=== PATIENT | male | born 1935 | race Caucasian/White ===

== ENCOUNTER 2020-04-23 15:36 | Inpatient (IN) ==
--- NOTE | 2020-04-23 15:50 | Emergency Department Note ---
History of Present Illness General Chief complaint: Stroke/CVA Symptoms Stated complaint: STROKE SX, FALL Time Seen by Provider: 04/23/20 15:39 Source: patient and EMS Mode of arrival: EMS History of Present Illness Provider complaint: Right-sided weakness Onset (ago): hour(s) Location: upper extremity, lower extremity and right Pain Consistency: + constant Quality: + other (Weakness) Relieved By: + none Associated symptoms: no chest pain, no cough, no fever/chills, no headaches, no nausea/vomiting, no shortness of breath and no syncope This is an 85-year-old male with a history of hypertension presenting with right-sided weakness starting at approximately 9:30 AM this morning. The patient stated that he woke up at around 6 AM and did not have any symptoms. At about 9:30 AM he was having a cup of coffee and he could not lift the coffee with his right arm. Later in the day he noticed that while trying to get up out of the chair he fell to the ground because his right leg was weak. He did hit the left side of his head. He denies headache. He does not think he injured his neck. He does feel like he has some stiffness there. He denies any other injuries from the fall. He has had no prior history of stroke. He denies any numbness. He has had no fever, cough cold symptoms, chest pain, shortness of breath, abdominal pain or vomiting. He is not on any blood thinners other than aspirin. Home Medications Home Medications Medication Instructions Recorded Confirmed Type aspirin [Aspirin Low Dose] 81 mg PO DAILY 04/23/20 04/23/20 History cholecalciferol (vitamin D3) 10 mcg PO DAILY 04/23/20 04/23/20 History food supplemt, lactose-reduced 1 ea PO BID 04/23/20 04/23/20 History [Ensure] hydrophilic cream 1 applic TOPICAL DAILY 04/23/20 04/23/20 History latanoprost 1 drp OPB HS 04/23/20 04/23/20 History levothyroxine 50 mcg PO DAILY 04/23/20 04/23/20 History lidocaine HCl [Aspercreme 1 applic TOPICAL DIRECTED PRN 04/23/20 04/23/20 History (lidocaine HCl)] lisinopril-hydrochlorothiazide 1 tab PO DAILY 04/23/20 04/23/20 History meclizine 25 mg PO TID PRN 04/23/20 04/23/20 History naproxen sodium 220 mg PO BID PRN 04/23/20 04/23/20 History omega-3 fatty acids-vitamin E 1 cap PO DAILY 04/23/20 04/23/20 History [Fish Oil] simvastatin 10 mg PO HS 04/23/20 04/23/20 History tamsulosin 0.4 mg PO DAILY 04/23/20 04/23/20 History vit C,K-Gl-acqki-lutein-zeaxan 1 tab PO BID 04/23/20 04/23/20 History [PreserVision AREDS-2] Allergies Allergy/AdvReac Type Severity Reaction Status Date / Time No Known Allergies Allergy Verified 04/23/20 19:07 Past Med/Surg History Medical History (Updated 04/23/20 @ 19:09 by Omer Michaels MD) Hypertension Hypothyroidism Social History (Updated 04/23/20 @ 15:50 by Myron Duke MD) Smoking Status: Never smoker Visual Impairment: Partially Limited Feels Safe at Home: Yes Review of Systems See HPI for pertinent positives & negatives. and A total of 10 systems reviewed and were otherwise negative Physical Exam Vital Signs Vital Signs - 24 hr 04/23/20 15:40 04/23/20 15:41 04/23/20 15:47 Temperature 36.9 C Temperature Source Oral Pulse Rate 71 67 67 Pulse Rate [Apical] Pulse Rate from SpO2 Sensor 73 71 Respiratory Rate 18 Blood Pressure 158/79 H 158/79 H Blood Pressure [Left Arm] Blood Pressure Mean 105 85 Blood Pressure Mean [Left Arm] Pulse Oximetry 96 98 98 Oxygen Delivery Method Room Air Sepsis Recent Fever Within 48 Hours No Sepsis New/Unexplained Change in Mental Status No Sepsis Action Taken by Nursing No Action Required 04/23/20 15:50 04/23/20 16:00 04/23/20 16:02 Temperature Temperature Source Pulse Rate 81 81 73 Pulse Rate [Apical] Pulse Rate from SpO2 Sensor 83 77 81 Respiratory Rate 24 18 Blood Pressure 122/93 Blood Pressure [Left Arm] Blood Pressure Mean 99 Blood Pressure Mean [Left Arm] Pulse Oximetry 98 96 Oxygen Delivery Method Sepsis Recent Fever Within 48 Hours Sepsis New/Unexplained Change in Mental Status Sepsis Action Taken by Nursing 04/23/20 16:10 04/23/20 16:20 04/23/20 16:42 Temperature Temperature Source Pulse Rate 83 78 76 Pulse Rate [Apical] Pulse Rate from SpO2 Sensor 83 76 83 Respiratory Rate 20 24 21 Blood Pressure 138/100 Blood Pressure [Left Arm] Blood Pressure Mean 115 Blood Pressure Mean [Left Arm] Pulse Oximetry 99 99 97 Oxygen Delivery Method Sepsis Recent Fever Within 48 Hours Sepsis New/Unexplained Change in Mental Status Sepsis Action Taken by Nursing 04/23/20 16:50 04/23/20 17:00 04/23/20 17:01 Temperature Temperature Source Pulse Rate 84 80 92 H Pulse Rate [Apical] Pulse Rate from SpO2 Sensor 92 H 81 76 Respiratory Rate 21 Blood Pressure 140/99 Blood Pressure [Left Arm] Blood Pressure Mean 108 Blood Pressure Mean [Left Arm] Pulse Oximetry 95 97 96 Oxygen Delivery Method Sepsis Recent Fever Within 48 Hours Sepsis New/Unexplained Change in Mental Status Sepsis Action Taken by Nursing 04/23/20 17:10 04/23/20 17:20 04/23/20 17:30 Temperature Temperature Source Pulse Rate 90 69 80 Pulse Rate [Apical] Pulse Rate from SpO2 Sensor Respiratory Rate 18 Blood Pressure 139/97 Blood Pressure [Left Arm] Blood Pressure Mean 103 Blood Pressure Mean [Left Arm] Pulse Oximetry Oxygen Delivery Method Sepsis Recent Fever Within 48 Hours Sepsis New/Unexplained Change in Mental Status Sepsis Action Taken by Nursing 04/23/20 17:31 04/23/20 17:40 04/23/20 17:50 Temperature Temperature Source Pulse Rate 79 79 97 H Pulse Rate [Apical] Pulse Rate from SpO2 Sensor Respiratory Rate 20 13 Blood Pressure Blood Pressure [Left Arm] Blood Pressure Mean Blood Pressure Mean [Left Arm] Pulse Oximetry Oxygen Delivery Method Sepsis Recent Fever Within 48 Hours Sepsis New/Unexplained Change in Mental Status Sepsis Action Taken by Nursing 04/23/20 18:00 04/23/20 18:01 04/23/20 18:10 Temperature Temperature Source Pulse Rate 73 72 74 Pulse Rate [Apical] Pulse Rate from SpO2 Sensor Respiratory Rate 23 Blood Pressure 164/104 H Blood Pressure [Left Arm] Blood Pressure Mean 110 Blood Pressure Mean [Left Arm] Pulse Oximetry Oxygen Delivery Method Sepsis Recent Fever Within 48 Hours Sepsis New/Unexplained Change in Mental Status Sepsis Action Taken by Nursing 04/23/20 18:20 04/23/20 18:30 04/23/20 18:40 Temperature Temperature Source Pulse Rate 81 74 69 Pulse Rate [Apical] Pulse Rate from SpO2 Sensor Respiratory Rate 23 Blood Pressure 167/82 H Blood Pressure [Left Arm] Blood Pressure Mean 87 Blood Pressure Mean [Left Arm] Pulse Oximetry Oxygen Delivery Method Sepsis Recent Fever Within 48 Hours Sepsis New/Unexplained Change in Mental Status Sepsis Action Taken by Nursing 04/23/20 18:50 04/23/20 19:00 04/23/20 19:10 Temperature Temperature Source Pulse Rate 114 H 83 84 Pulse Rate [Apical] Pulse Rate from SpO2 Sensor Respiratory Rate 19 20 21 Blood Pressure Blood Pressure [Left Arm] Blood Pressure Mean Blood Pressure Mean [Left Arm] Pulse Oximetry Oxygen Delivery Method Sepsis Recent Fever Within 48 Hours Sepsis New/Unexplained Change in Mental Status Sepsis Action Taken by Nursing 04/23/20 19:20 04/23/20 19:28 Temperature Temperature Source Pulse Rate 74 Pulse Rate [Apical] 76 Pulse Rate from SpO2 Sensor Respiratory Rate 21 22 Blood Pressure Blood Pressure [Left Arm] 142/90 H Blood Pressure Mean Blood Pressure Mean [Left Arm] 107 Pulse Oximetry 97 Oxygen Delivery Method Room Air Sepsis Recent Fever Within 48 Hours Sepsis New/Unexplained Change in Mental Status Sepsis Action Taken by Nursing Constitutional: Vital signs reviewed. Eyes: Pupils are equal round reactive to light. Conjunctiva are noninjected. ENT: Pharynx is clear without erythema or exudate. Mucous membranes are moist. Neck supple without meningeal signs. No midline tenderness to the cervical spine. Respiratory: Clear to auscultation bilaterally. Breath sounds are equal bilaterally. Cardiovascular: Regular rate and rhythm. No rubs or gallops. GI: Soft, nondistended and nontender. Bowel sounds are present. Musculoskeletal: No peripheral edema. No lower extremity tenderness. Integumentary: No cyanosis. or jaundice. Neurologic: The patient is awake and alert. Cranial nerves II-XII are intact. Motor is 5 out of 5 in the left upper and lower extremity. Strength is 3 out of 5 in the right lower and upper extremity. Sensation is intact to light touch all extremities. Normal speech. Left pronator drift and limb ataxia. Psychiatric: Normal affect. Not anxious appearing. Course Administered Medications Discontinued Medications Clopidogrel Bisulfate (Clopidogrel Bisulfate 300 Mg Tab) 300 mg PO NOW STA Stop: 04/23/20 19:01 Last Admin: 04/23/20 19:25 Dose: 300 mg Documented by: [id number] Ioversol (Optiray 320 125ml) 119 ml IV ONCE ONE Stop: 04/23/20 16:41 Last Admin: 04/23/20 16:40 Dose: 119 ml Documented by: [id number] Medical Decision Making Differential Diagnosis CVA, TIA, intracranial hemorrhage, intracranial mass, concussion, encephalopathy Medical Records Attestation: I reviewed the patient's medical records. I did perform a limited focused review of portions of the patient's old chart on the electronic medical record. The patient has had no prior visits to this hospital. Home Medications Current Medication List: was personally reviewed by me Laboratory Data Attestation: I reviewed the patient's lab results. Result diagrams: 04/23/20 15:30 04/23/20 15:30 Lab Results 04/23/20 04/23/20 04/23/20 Range/Units 15:30 15:30 15:30 WBC 7.03 (4.8-10.8) K/uL RBC 4.74 (4.7-6.1) M/uL Hgb 14.8 (14.0-18.0) g/dL Hct 43.6 (42-52) % MCV 92.0 (80-100) fL MCH 31.2 (25-34) pg MCHC 33.9 (32-36) g/dL RDW Std Deviation 49.1 H (36.4-46.3) fL RDW Coeff of Chon 14.5 (11.5-14.5) % Plt Count 211 (130-400) K/uL MPV 11.1 H (7.4-10.4) fL Immature Gran % (Auto) 0.1 % Neut % (Auto) 70.1 % Lymph % (Auto) 17.9 % Barrow % (Auto) 11.2 % Eos % (Auto) 0.7 % Baso % (Auto) 0.0 % Neut # (Auto) 4.92 (1.4-6.5) K/uL Lymph # (Auto) 1.26 (1.2-3.4) K/uL Barrow # (Auto) 0.79 H (0.11-0.59) K/uL Eos # (Auto) 0.05 (0-0.5) K/uL Baso # (Auto) 0.00 (0-0.2) K/uL Immature Gran # (Auto) 0.01 (0.00-0.02) K/uL PT 11.4 (9.0-12.0) Seconds INR 1.1 (0.9-1.1) APTT 30.5 (21.0-31.0) Seconds PTT Ratio 1.1 Sodium 139 (136-145) mmol/L Potassium 3.8 (3.5-5.1) mmol/L Chloride 106 (98-107) mmol/L Carbon Dioxide 27 (21-32) mmol/L Anion Gap 6.0 (3-11) BUN 19 H (7-18) mg/dl Creatinine 1.18 (0.6-1.4) mg/dl Est Cr Clr Drug Dosing 53.3 ml/min Est GFR ( Amer) 64.4 Est GFR (Non-Af Amer) 55.5 BUN/Creatinine Ratio 16.2 (10-20) Glucose 85 (70-99) mg/dl Calcium 9.1 (8.5-10.1) mg/dl Magnesium 2.1 (1.8-2.4) mg/dl Total Bilirubin 0.5 (0.2-1) mg/dl AST 27 (15-37) U/L ALT 27 (12-78) U/L Alkaline Phosphatase 93 (45-117) U/L Troponin I < 0.015 (0-0.045) ng/ml Total Protein 8.4 H (6.4-8.2) gm/dl Albumin 3.1 L (3.4-5.0) gm/dl Globulin 5.3 H (2.5-4.0) gm/dl Albumin/Globulin Ratio 0.6 L (0.9-2) Imaging Data Radiologist's Impression: CERVICAL SPINE CT CT DOSE: 1838.98 mGy.cm HISTORY: Fall. Neck pain. TECHNIQUE: Multiaxial CT images of the cervical spine were performed and reformatted in the sagittal and coronal plane without the use of contrast. A dose lowering technique was utilized adhering to the principles of ALARA. COMPARISON: None. FINDINGS: Straightening of the cervical spine. Mild degenerative disc disease at C4-C5, C5-C6, and C6-C7. Prevertebral soft tissues and the C1-C2 interval are intact. No pneumothorax. Focal super endplate indentation at T2. This favors a Schmorl's node. No paravertebral soft tissue edema to suggest an acute fracture. This could also represent an old compression deformity. No acute fracture or subluxation within the cervical spine. IMPRESSION: 1. No fractures within the cervical spine. 2. Focal superior endplate indentation at T2. This favors a Schmorl's node. An old endplate compression deformity could also have a similar appearance. ACT 112: Negative or not required by law. Electronically signed by: Jason Schultz M.D. 04/23/2020 4:51 PM XR chest 1V portable HISTORY: Stroke symptoms. Shortness of breath. COMPARISON: None. FINDINGS: The lungs are clear. Cardiac silhouette is normal in size. No pleural effusions. No pneumothorax. IMPRESSION: No acute process. ACT 112: Negative or not required by law. Electronically signed by: Jason Schultz M.D. 04/23/2020 4:17 PM NECK CTA HISTORY: Right-sided weakness. Stroke evaluation. TECHNIQUE: Multiaxial CT images of the neck were performed following the intravenous administration of contrast to evaluate the major cervical vessels. Maximum intensity projection images were also obtained. All measurements were calculated based on NASCET criteria. A dose lowering technique was utilized adhering to the principles of ALARA. COMPARISON STUDY: None. FINDINGS: The aortic arch and proximal great vessels are widely patent. Moderate calcified plaque within the bilateral carotid bifurcations without significant stenosis. Tortuous proximal bilateral internal carotid arteries. Mild fusiform aneurysmal dilatation of the distal left internal carotid artery measuring 7 mm in diameter. There is a large fusiform aneurysm seen within the distal right internal carotid artery measuring 11 mm in diameter and 1.8 cm in length. Mild narrowing at the origin of the bilateral vertebral arteries due to the calcified plaque. Remaining bilateral vertebral arteries are widely patent. IMPRESSION: 1. No significant stenosis, occlusion, or dissection within the bilateral carotid arteries. 2. Mild focal narrowing at the origin of the bilateral vertebral arteries. 3. 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 ACT 112: Negative or not required by law. Electronically signed by: Jason Schultz M.D. 04/23/2020 4:59 PM CTA ANGIOGRAPHY OF THE HEAD CLINICAL HISTORY: Stroke evaluation. Fall. Right-sided weakness. Right-sided facial droop. COMPARISON STUDY: No previous studies for comparison. TECHNIQUE: Helical axial images of the head were obtained following uneventful intravenous administration of 119 cc of Optiray 320. Sagittal and coronal recons tructions were viewed as well as maximal intensity projections on an independent 3-D workstation. Automated exposure control was utilized for the study. A dose lowering technique was utilized adhering to the principles of ALARA. FINDINGS: No acute intracranial hemorrhage, midline shift or mass effect is present. Ventricular system is unremarkable for age. Basilar cisterns are patent. White matter hypodensity suggests small vessel disease. There is extensive atherosclerotic plaque within the intracranial vessels. Note is made of aneurysmal dilatation of the distal cervical portion of the right internal carotid artery, better depicted on the CTA of the neck. This measures 1.1 x 1 cm in the AP by transverse dimension respectively and measures 1.8 cm in length. There is mild fusiform dilatation of the basilar artery, measuring 8 mm. No saccular intracranial aneurysm is present. The bilateral M1, M2, A1 and A2 segments are patent. There is no intraluminal thrombus. There is no central vessel occlusion. Venous gas is incidentally noted. This is related to IV. IMPRESSION: 1. No central vessel occlusion. 2. 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 Please see that report for further description. 3. 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 4. Extensive atherosclerotic plaque within the intracranial vessels. No significant stenosis. ACT 112: Negative or not required by law. Electronically signed by: Chidi Millan M.D. 04/23/2020 4:[address] OF THE HEAD WITHOUT CONTRAST CLINICAL HISTORY: right weakness COMPARISON STUDY: No previous studies for comparison. TECHNIQUE: Helical axial images of the head were obtained without IV contrast. Automated exposure control was utilized for the study. A dose lowering technique was utilized adhering to the principles of ALARA. FINDINGS: No acute intracranial hemorrhage, midline shift or mass effect is present. Ventricular system is unremarkable. The basilar cisterns are patent. There are no extra axial collections. White matter hypodensity suggests small vessel disease. There are no findings to suggest acute dural sinus thrombosis or acute territorial infarct. Extensive vascular calcification of the intracranial vessels is noted. Minimal ethmoid sinus mucosal thickening is noted. There are no significant calvarial abnormalities. Cavernous sinus gas is likely related to IV. IMPRESSION: No acute intracranial findings. ACT 112: Negative or not required by law. Electronically signed by: Chidi Millan M.D. 04/23/2020 4:42 PM ECG Data Attestation: I personally reviewed and interpreted this ECG as follows: Indication: + other (Stroke) Rate (beats per minute): 85 Rhythm: + normal sinus ECG Intervals/blocks: + Mobitz Type II, + Left anterior fascicular block and + Right Bundle branch block ECG ST segments: no ST elevation Comparison ECG Date: no prior available Blood Pressure Blood Pressure Findings: Elevated blood pressure Blood Pressure Disposition: further management by hospitalist Head Trauma GCS Score: 15 MDM Narrative I did provide prehospital medical command for the patient. I did evaluate the patient as noted above. He is presenting with symptoms concerning for stroke. He is not a IV TPA candidate as he first noticed his symptoms at 9:30 AM this morning. IV access was established. I did place an order for continuous cardiac monitoring. The monitor showed sinus rhythm at a rate of 86 bpm with some dropped beats. I did order and personally review the patient's 12-lead EKG as described above. He appears to have a right bundle branch block as well as a left anterior fascicular block and a Mobitz type II second-degree block. I did order and personally reviewed the images of the patient's chest x-ray as described above. I did order and review the patient's blood work as noted in the electronic medical record. He has no leukocytosis or anemia. Electrolytes are unremarkable. Troponin is negative. I did order a CT of the head and cervical spine and CT angiogram of the head and neck. I did review the images myself as well as the radiology report as described above. There is no evidence of acute intracranial hemorrhage or CVA. Cervical spine demonstrates no fractures or dislocation. Angiogram of the head and neck demonstrates aneurysmal dilatation of both internal carotid arteries. No dissection or stenosis is noted. I did discuss the test results with the patient. I did reassess the patient. He continues to have weakness on the right side of his body. He will be hospitalized for further evaluation and MRI of the brain. I did discuss case with the hospitalist and correctional counselor/case manager. I spoke to the patient's son over the telephone per his request. Impression & Plan Acute cerebrovascular accident, Right sided weakness, Acute head injury, Aneurysm of left internal carotid artery, Aneurysm of right internal carotid artery, Mobitz type 2 second degree heart block Discharge Plan Visit Data Chief Complaint: Stroke/CVA Symptoms Stated Complaint: STROKE SX, FALL ED Provider: Myron Duke Discharge Problem: Acute cerebrovascular accident, Right sided weakness, Acute head injury, Aneurysm of left internal carotid artery, Aneurysm of right internal carotid artery, Mobitz type 2 second degree heart block Discharge Instructions Interventions: ED Discharge Assessment Last Done: 04/23/20 19:37 Forms Stand Alone Forms: My [facility] [employer] Prescriptions Prescriptions: No Action latanoprost 0.005 % Drops 1 drp OPB HS RF: 0 aspirin [Aspirin Low Dose] 81 mg Tablet,Delayed Release (Dr/Ec) 81 mg PO DAILY RF: 0 tamsulosin 0.4 mg Capsule 0.4 mg PO DAILY RF: 0 levothyroxine 50 mcg Tablet 50 mcg PO DAILY RF: 0 simvastatin 20 mg Tablet 10 mg PO HS RF: 0 naproxen sodium 220 mg Tablet 220 mg PO BID PRN (Reason: Pain) RF: 0 lisinopril-hydrochlorothiazide 20-25 mg Tablet 1 tab PO DAILY RF: 0 cholecalciferol (vitamin D3) 10 mcg (400 unit) Tablet 10 mcg PO DAILY RF: 0 meclizine 25 mg Tablet,Chewable 25 mg PO TID PRN (Reason: Dizziness) RF: 0 Ensure Liquid 1 ea PO BID RF: 0 Fish Oil 1,000 mg Capsule 1 cap PO DAILY RF: 0 hydrophilic cream Cream 1 applic TOPICAL DAILY RF: 0 PreserVision AREDS-2 [id number]-[id number]-mg Capsule 1 tab PO BID RF: 0 lidocaine HCl [Aspercreme (lidocaine HCl)] 4 % Cream 1 applic TOPICAL DIRECTED PRN (Reason: Pain) RF: 0 Referrals Referrals: Pedro Luis Solares [Primary Care Provider] -
[2020-04-23 15:56] LABS: Eosinophils # (auto) 0.05 K/uL (0-0.5); Eosinophils % (auto) 0.7 %; Hematocrit (blood only) 43.6 % (42-52); Hemoglobin 14.8 g/dL (14.0-18.0); Immature Granulocytes # (auto) 0.01 K/uL (0.00-0.02); Immature Granulocytes % (auto) 0.1 %; Lymphocytes # (auto) 1.26 K/uL (1.2-3.4); Lymphocytes % (auto) 17.9 %; Mean Corpuscular Hemoglobin 31.2 pg (25-34); Mean Corpuscular Hgb Conc 33.9 g/dL (32-36); Mean Platelet Volume 11.1 fL (7.4-10.4); Monocytes # (auto) 0.79 K/uL (0.11-0.59); Monocytes % (auto) 11.2 %; Neutrophils # (auto) 4.92 K/uL (1.4-6.5); Neutrophils % (auto) 70.1 %; Platelet Count 211 K/uL (130-400); RDW Coefficient of Variation 14.5 % (11.5-14.5); RDW Standard Deviation 49.1 fL (36.4-46.3); Red Blood Count 4.74 M/uL (4.7-6.1); White Blood Count 7.03 K/uL (4.8-10.8)
[2020-04-23 16:11] LABS: INR 1.1 (0.9-1.1); Partial Thromboplastin Ratio 1.1; Partial Thromboplastin Time 30.5 Seconds (21.0-31.0); Prothrombin Time 11.4 Seconds (9.0-12.0)
--- NOTE | 2020-04-23 16:19 | XRay Report ---
XR chest 1V portable HISTORY: Stroke symptoms. Shortness of breath. COMPARISON: None. FINDINGS: The lungs are clear. Cardiac silhouette is normal in size. No pleural effusions. No pneumot horax. IMPRESSION: No acute process. ACT 112: Negative or not required by law. Electronically signed by: Jason Schultz M.D. 04/23/2020 4:17 PM
[2020-04-23 16:22] LABS: Albumin Level 3.1 gm/dl (3.4-5.0); BUN Creatinine Ratio 16.2 (10-20); Blood Urea Nitrogen 19 mg/dl (7-18); Calcium 9.1 mg/dl (8.5-10.1); Carbon Dioxide 27 mmol/L (21-32); Chloride 106 mmol/L (98-107); Creatinine Clr Calc Pharmacy 53.3 ml/min; Est GFR (African American) 64.4; Est GFR (Non-African American) 55.5; Glucose 85 mg/dl (70-99); Magnesium 2.1 mg/dl (1.8-2.4); Potassium 3.8 mmol/L (3.5-5.1); Sodium 139 mmol/L (136-145)
[2020-04-23 16:28] LABS: Alanine Aminotransferase 27 U/L (12-78); Albumin Globulin Ratio 0.6 (0.9-2); Alkaline Phosphatase 93 U/L (45-117); Aspartate Aminotransferase 27 U/L (15-37); Bilirubin,Total 0.5 mg/dl (0.2-1); Globulin 5.3 gm/dl (2.5-4.0); Total Protein 8.4 gm/dl (6.4-8.2); Troponin I < 0.015 ng/ml (0-0.045)
[2020-04-23] MEDS ORDERED: OPTIRAY 320 125ml IV ONE (16:40)
--- NOTE | 2020-04-23 16:44 | CT Scan Report ---
CT OF THE HEAD WITHOUT CONTRAST CLINICAL HISTORY: right weakness COMPARISON STUDY: No previous studies for comparison. TECHNIQUE: Helical axial images of the head were obtained without IV contrast. Automated exposure con trol was utilized for the study. A dose lowering technique was utilized adhering to the principles o f ALARA. FINDINGS: No acute intracranial hemorrhage, midline shift or mass effect is present. Ventricular syst em is unremarkable. The basilar cisterns are patent. There are no extra axial collections. White jad er hypodensity suggests small vessel disease. There are no findings to suggest acute dural sinus thro mbosis or acute territorial infarct. Extensive vascular calcification of the intracranial vessels is noted. Minimal ethmoid sinus mucosal thickening is noted. There are no significant calvarial abnormal ities. Cavernous sinus gas is likely related to IV. IMPRESSION: No acute intracranial findings. ACT 112: Negative or not required by law. Electronically signed by: Chidi Millan M.D. 04/23/2020 4:42 PM
--- NOTE | 2020-04-23 16:53 | CT Scan Report ---
CERVICAL SPINE CT CT DOSE: 1838.98 mGy.cm HISTORY: Fall. Neck pain. TECHNIQUE: Multiaxial CT images of the cervical spine were performed and reformatted in the sagittal and coronal plane without the use of contrast. A dose lowering technique was utilized adhering to th e principles of ALARA. COMPARISON: None. FINDINGS: Straightening of the cervical spine. Mild degenerative disc disease at C4-C5, C5-C6, and C6 -C7. Prevertebral soft tissues and the C1-C2 interval are intact. No pneumothorax. Focal super endpla te indentation at T2. This favors a Schmorl's node. No paravertebral soft tissue edema to suggest an acute fracture. This could also represent an old compression deformity. No acute fracture or subluxat ion within the cervical spine. IMPRESSION: 1. No fractures within the cervical spine. 2. Focal superior endplate indentation at T2. This favors a Schmorl's node. An old endplate compressi on deformity could also have a similar appearance. ACT 112: Negative or not required by law. Electronically signed by: Jason Schultz M.D. 04/23/2020 4:51 PM
--- NOTE | 2020-04-23 16:59 | CT Scan Report ---
CTA ANGIOGRAPHY OF THE HEAD CLINICAL HISTORY: Stroke evaluation. Fall. Right-sided weakness. Right-sided facial droop. COMPARISON STUDY: No previous studies for comparison. TECHNIQUE: Helical axial images of the head were obtained following uneventful intravenous administr ation of 119 cc of Optiray 320. Sagittal and coronal reconstructions were viewed as well as maximal i ntensity projections on an independent 3-D workstation. Automated exposure control was utilized for the study. A dose lowering technique was utilized adhering to the principles of ALARA. FINDINGS: No acute intracranial hemorrhage, midline shift or mass effect is present. Ventricular syst em is unremarkable for age. Basilar cisterns are patent. White matter hypodensity suggests small vess el disease. There is extensive atherosclerotic plaque within the intracranial vessels. Note is made o f aneurysmal dilatation of the distal cervical portion of the right internal carotid artery, better d epicted on the CTA of the neck. This measures 1.1 x 1 cm in the AP by transverse dimension respective ly and measures 1.8 cm in length. There is mild fusiform dilatation of the basilar artery, measuring 8 mm. No saccular intracranial aneurysm is present. The bilateral M1, M2, A1 and A2 segments are pat ent. There is no intraluminal thrombus. There is no central vessel occlusion. Venous gas is incidenta lly noted. This is related to IV. IMPRESSION: 1. No central vessel occlusion. 2. 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 Please see that report for further description. 3. 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 4. Extensive atherosclerotic plaque within the intracranial vessels. No significant stenosis. ACT 112: Negative or not required by law. Electronically signed by: Chidi Millan M.D. 04/23/2020 4:57 PM
--- NOTE | 2020-04-23 17:01 | CT Scan Report ---
NECK CTA HISTORY: Right-sided weakness. Stroke evaluation. TECHNIQUE: Multiaxial CT images of the neck were performed following the intravenous administration o f contrast to evaluate the major cervical vessels. Maximum intensity projection images were also obta ined. All measurements were calculated based on NASCET criteria. A dose lowering technique was utili zed adhering to the principles of ALARA. COMPARISON STUDY: None. FINDINGS: The aortic arch and proximal great vessels are widely patent. Moderate calcified plaque wi thin the bilateral carotid bifurcations without significant stenosis. Tortuous proximal bilateral int ernal carotid arteries. Mild fusiform aneurysmal dilatation of the distal left internal carotid arter y measuring 7 mm in diameter. There is a large fusiform aneurysm seen within the distal right interna l carotid artery measuring 11 mm in diameter and 1.8 cm in length. Mild narrowing at the origin of th e bilateral vertebral arteries due to the calcified plaque. Remaining bilateral vertebral arteries ar e widely patent. IMPRESSION: 1. No significant stenosis, occlusion, or dissection within the bilateral carotid arteries. 2. Mild focal narrowing at the origin of the bilateral vertebral arteries. 3. 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 ACT 112: Negative or not required by law. Electronically signed by: Jason Schultz M.D. 04/23/2020 4:59 PM
[2020-04-23] MEDS ORDERED: CLOPIDOGREL BISULFATE 300 MG TAB PO STA (19:00)
--- NOTE | 2020-04-23 19:10 | History & Physical Report ---
Date of Service April 23, 2020 Assessment & Plan (1) Right sided weakness: Suspected CVA. Request outpatient notes from PCP. CT head, CTA as above. MRI w/o contrast. TTE. Monitor for arrhythmia on telemetry Gentle IV hydration overnight. Already taking ASA therefore will add clopidogrel 300mg PO stat now then 75 mg PO daily. Hold antihypertensives to allow permissive hypertension Hold NSAIDs Given advanced age will continue his simvastatin 10mg HS pending LDL values in AM Lipid profile and HbA1C with AM labs. Monitor on telemetry. PT/OT/Speech. Consult neurology (2) Hypothyroidism: TSH with AM labs Continue levothyroxine 50 mcg PO daily (3) Hypertension: Hold lisinopril/HCTZ to allow permissive hypertension as above. (4) Abnormal EKG: Bifascicular block. No history of syncope. Irregular rhythm - ?wandering pacemaker, heart block, presence of p waves therefore not a. fib. Monitor on telemetry (5) Benign prostatic hyperplasia: Presumed diagnosis from medication list. Continue tamsulosin 0.4mg PO daily (6) Age-related macular degeneration: Continue Preservision 1 tab BID (7) DVT prophylaxis: Lovenox 40mg SQ daily Admission and Anticipated Discharge Date Admission Date: April 23, 2020 History of Present Illness Chief Complaint: Right sided weakness Primary Care Provider: Pedro Luis Solares Mohan Salvador is an 85 year old male who presents to the ER with an episode of right sided weakness. No symptoms on waking up this morning. Around 9:30-10am while having a cup of coffee he suddenly couldn't lift his cup of coffee. He continued to have right arm weakness throughout the day. This afternoon he was unable to get himself up from his chair and fell to the ground due to a right sided weakness. He managed to crawl across the floor to call for an ambulance. He notes no history of stroke. He is unable to tell me any of his medications and just points me towards his medication list. [facility] and patient unable to tell me his past medical history other than to confirm known diagnoses of hypertension and hypothyroidism. He reports he is legally blind which when prompted thinks this is from age related macular degeneration. He denies any prior heart attack or stroke. He has no noticed any significant improvement in his symptoms in the ER. He is right handed. No change in speech, swallow, extremity change in sensation, vision, hearing, smell, taste. Allergies Allergy/AdvReac Type Severity Reaction Status Date / Time No Known Allergies Allergy Verified 04/23/20 19:07 Home Medications Home Medications Medication Instructions Recorded Confirmed Type aspirin [Aspirin Low Dose] 81 mg PO DAILY 04/23/20 04/23/20 History cholecalciferol (vitamin D3) 10 mcg PO DAILY 04/23/20 04/23/20 History food supplemt, lactose-reduced 1 ea PO BID 04/23/20 04/23/20 History [Ensure] hydrophilic cream 1 applic TOPICAL DAILY 04/23/20 04/23/20 History latanoprost 1 drp OPB HS 04/23/20 04/23/20 History levothyroxine 50 mcg PO DAILY 04/23/20 04/23/20 History lidocaine HCl [Aspercreme 1 applic TOPICAL DIRECTED PRN 04/23/20 04/23/20 History (lidocaine HCl)] lisinopril-hydrochlorothiazide 1 tab PO DAILY 04/23/20 04/23/20 History meclizine 25 mg PO TID PRN 04/23/20 04/23/20 History naproxen sodium 220 mg PO BID PRN 04/23/20 04/23/20 History omega-3 fatty acids-vitamin E 1 cap PO DAILY 04/23/20 04/23/20 History [Fish Oil] simvastatin 10 mg PO HS 04/23/20 04/23/20 History tamsulosin 0.4 mg PO DAILY 04/23/20 04/23/20 History vit C,W-Xu-asgez-lutein-zeaxan 1 tab PO BID 04/23/20 04/23/20 History [PreserVision AREDS-2] Past Med/Surg History Medical History (Updated 04/24/20 @ 07:57 by Omer Michaels MD) Age-related macular degeneration Benign prostatic hyperplasia Hypertension Hypothyroidism Social History Smoking Status: Never smoker Second Hand Exposure: No; Do You Dip or Chew Tobacco: Yes; Tobacco Cessation Education Requested by Patient: No Hx Alcohol Use: No Hx Substance Use: No Preferred Language: Slovenian Communication Ability: Effective Visual Impairment: Partially Limited Beliefs That Will Affect Care: None Current Living Situation: Alone Current Living Situation Comment: Home health aid comes into patients home twice/week; [facility] Other Information That Helps Us Care for You: No Feels Safe at Home: Yes Safety Concerns: Feels Safe At This Time Assistive Devices: Cane, CPAP, Denture - Upper, Denture - Lower and Glasses Review of Systems Review of Systems: All systems reviewed & are unremarkable except as noted in HPI & below Physical Exam Constitutional: well developed and well nourished; no acute distress Eyes: PERRL, conjunctivae normal, anicteric sclerae (chronic vision loss R > L) ENMT: external ear and nose normal, oropharynx normal Neck: trachea midline, no thyromegaly Respiratory: normal respiratory effort, lungs clear to auscultation Cardiovascular: Rate/Rhythm: + irregularly irregular Heart Sounds: no murmur Extremities: normal capillary refill and + pedal edema (1+ to mid shins); no calf tenderness Gastrointestinal (Abdomen): normal bowel sounds, soft, nontender, no hepatosplenomegaly Musculoskeletal: Right knee pain and swelling, mild erythema/ecchymosis on anterior knee. Skin: no rashes, warm and dry Neurologic: moves all extremities and awake; + abnormal deep tendon reflexes (unable to test knee, increased biceps on right, supinator equal), + plantar reflexes not intact (upgoing on right, increased reflex) and not confused Speech / Cognition: normal speech Motor/Sensory: + pronator drift (right sided weakness); no tremor Cranial Nerves: PERRL (vision chronically impaired), EOM intact bilaterally, normal facial strength, tongue midline, able to rotate head bilaterally, no nystagmus and symmetric palate elevation; + not able to elevate shoulders (right sided weakness) Coordination: + abnormal [id number] test (right sided weakness rather than less co-ordination) Proximal > distal right sided weakness Shoulder abduction 3/5, flexion 4/5, elbow extension 3/5 flex 4/5, mild reduced petrology teacher strength on right. Left UE strength 5/5 Right Hip flex 4/5, ankle dorsiflexion 4/5, unable to test knee movements due to injury. Psychiatric: A+Ox3, euthymic affect Genitourinary: no CVA tenderness Results & Data Results & Data ([facility]) Vital Signs (Past 12 Hours) Vital Signs Temp Pulse Resp BP Pulse Ox 04/23/20 17:50 97 H 13 04/23/20 17:40 79 20 04/23/20 17:31 79 04/23/20 17:30 80 139/97 04/23/20 17:20 69 04/23/20 17:10 90 18 04/23/20 17:01 92 H 96 04/23/20 17:00 80 140/99 97 04/23/20 16:50 84 21 95 04/23/20 16:42 76 21 138/100 97 04/23/20 16:20 78 24 99 04/23/20 16:10 83 20 99 04/23/20 16:02 73 18 122/93 96 04/23/20 16:00 81 98 04/23/20 15:50 81 24 04/23/20 15:47 67 98 04/23/20 15:41 67 158/79 H 98 04/23/20 15:40 36.9 C 71 18 158/[address] OF THE HEAD WITHOUT CONTRAST IMPRESSION: No acute intracranial findings. CTA ANGIOGRAPHY OF THE HEAD IMPRESSION: 1. No central vessel occlusion. 2. 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 Please see that report for further description. 3. 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 4. Extensive atherosclerotic plaque within the intracranial vessels. No significant stenosis. NECK CTA IMPRESSION: 1. No significant stenosis, occlusion, or dissection within the bilateral carotid arteries. 2. Mild focal narrowing at the origin of the bilateral vertebral arteries. 3. 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 as described above with the largest on the right measuring 11 mm in diameter and 1.8 cm in length. XR chest 1V portable IMPRESSION: No acute process. CERVICAL SPINE CT IMPRESSION: 1. No fractures within the cervical spine. 2. Focal superior endplate indentation at T2. This favors a Schmorl's node. An old endplate compression deformity could also have a similar appearance. MRI OF THE BRAIN WITHOUT IV CONTRAST IMPRESSION: 1. There is a small focus of restricted diffusion identified in the left parietal lobe consistent with acute to subacute ischemia. 2. No additional foci of acute ischemia are identified. 3. There is no hemorrhage or mass effect. ECG Indication: other (CVA) Rate (beats per minute): 85 Rhythm: sinus with SA Findings: + 1st degree AV block, + LAFB and + RBBB Change: no significant change Code Status & VTE Plan Code Status Full VTE Prophylaxis Plan VTE Prophylaxis will be ordered: Yes PG Care Time/CCT Total # of Minutes Spent Total Time Spent with Patient: Total time spent is greater than 50% in coordination of care (as documented) at patient's floor/unit and/or counseling patient: Coding Level of Care Code 10676 OBS Care - Level 3 Diagnoses Right sided weakness R53.1 Hypothyroidism E03.9 Hypertension I10 Abnormal EKG R94.31 Benign prostatic hyperplasia N40.0 Age-related macular degeneration H35.30 DVT prophylaxis Z29.9
[2020-04-23] MEDS ORDERED: TROLAMINE SALICYLATE 10% CRM 255 APPLN/85 GM TUBE EXT PRN (20:32)
[2020-04-23] MEDS ORDERED: PHARMACIST DISCHARGE MED REC CONSULT PRN (20:32)
[2020-04-23] MEDS ORDERED: NSS + 20MEQ KCL 20 MEQ/1,000 ML BAG IV SCH (21:00)
[2020-04-23] MEDS ORDERED: NON-FORMULARY MEDICATION (Food Supplemt, Lactose-Reduced [Ensure] 1 EA) PO SCH (21:00)
[2020-04-23] MEDS: SIMVASTATIN 10 MG TAB PO SCH (22:33)
[2020-04-23] MEDS: LATANOPROST 0.005% OP SOLN 2.5 ML BTL OPB SCH (22:33)
--- NOTE | 2020-04-24 07:12 | Magnetic Resonance Report ---
MRI OF THE BRAIN WITHOUT IV CONTRAST CLINICAL HISTORY: Right-sided weakness. COMPARISON STUDY: CT of the brain dated 04/23/2020. TECHNIQUE: MRI of the brain was performed utilizing various T1 and T2-weighted sequences in the axial , sagittal, and coronal planes. IV contrast was not administered for this examination. FINDINGS: Brain parenchyma: There is a small focus of restricted diffusion identified in the left parietal lobe consistent with acute to subacute ischemia. No additional foci of restricted diffusion are identifie d. There is no hemorrhage or mass effect. There is age-related involutional change noting advanced co nfluent subcortical and periventricular microangiopathic disease. A chronic lacunar infarct is noted in the right mitchell radiata. No extra-axial fluid collection is seen. The cerebellar tonsils are norm al in configuration. Ventricles, sulci, and cisterns: Prominent secondary to involutional change. Pituitary and sella: Partially empty sella is incidentally noted. Intracranial vasculature: Normal flow voids are maintained at the skull base. Orbits: The bony orbits are grossly intact. Orbital contents are normal in appearance noting bilatera l ocular lens implants. Sinuses and mastoids: Clear. Calvarium: Unremarkable. Cervical cord: Partially visualized cervical spinal cord is normal in morphology and signal intensity . IMPRESSION: 1. There is a small focus of restricted diffusion identified in the left parietal lobe consistent wit h acute to subacute ischemia. 2. No additional foci of acute ischemia are identified. 3. There is no hemorrhage or mass effect. ACT 112: Negative or not required by law. Electronically signed by: Rylan Avila M.D. 04/24/2020 7:11 AM
[2020-04-24 08:19] LABS: Basophils # (auto) 0.01 K/uL (0-0.2); Basophils % (auto) 0.2 %; Eosinophils # (auto) 0.11 K/uL (0-0.5); Eosinophils % (auto) 1.8 %; Hematocrit (blood only) 42.8 % (42-52); Hemoglobin 14.4 g/dL (14.0-18.0); Immature Granulocytes # (auto) 0.01 K/uL (0.00-0.02); Immature Granulocytes % (auto) 0.2 %; Lymphocytes % (auto) 27.3 %; Mean Corpuscular Hemoglobin 30.8 pg (25-34); Mean Corpuscular Hgb Conc 33.6 g/dL (32-36); Mean Corpuscular Volume 91.6 fL (80-100); Mean Platelet Volume 11.4 fL (7.4-10.4); Monocytes # (auto) 1.02 K/uL (0.11-0.59); Monocytes % (auto) 16.4 %; Neutrophils # (auto) 3.38 K/uL (1.4-6.5); Neutrophils % (auto) 54.1 %; Platelet Count 202 K/uL (130-400); RDW Coefficient of Variation 14.6 % (11.5-14.5); RDW Standard Deviation 48.8 fL (36.4-46.3); Red Blood Count 4.67 M/uL (4.7-6.1); White Blood Count 6.23 K/uL (4.8-10.8)
[2020-04-24] MEDS: CEROVITE ADV FORMULA TAB PO SCH (08:28)
[2020-04-24] MEDS: TAMSULOSIN HCL 0.4 MG CAP PO SCH (08:28)
[2020-04-24] MEDS: LEVOTHYROXINE SODIUM 50 MCG TABLET PO SCH (08:28)
[2020-04-24] MEDS: CHOLECALCIFEROL (VITAMIN D) 400 UNITS TABLET PO SCH (08:28)
[2020-04-24] MEDS: OMEGA-3 (PURIFIED FISH OIL) 1 GM CAP PO SCH (08:28)
[2020-04-24] MEDS: CLOPIDOGREL BISULFATE 75 MG TAB PO SCH (08:29)
[2020-04-24 08:44] LABS: BUN Creatinine Ratio 15.2 (10-20); Calcium 9.3 mg/dl (8.5-10.1); Creatinine Clr Calc Pharmacy 48.1 ml/min; Est GFR (African American) 61.8; Est GFR (Non-African American) 53.4; Potassium 3.5 mmol/L (3.5-5.1)
--- NOTE | 2020-04-24 08:50 | Neurology Consultation ---
Date of Consultation April 24, 2020 Assessment & Plan (1) Acute CVA (cerebrovascular accident): (2) Right sided weakness: (3) Aneurysm of carotid artery: (4) Atrial fibrillation: (5) Chronic cerebral ischemia: (6) Idiopathic polyneuropathy: (7) Hypertension: this patient has a history of acute left parietal stroke April 23, resulting in a moderate right bk paresis involving arm and leg (not face). There may be some mild dysarthria but no aphasia, sensory deficit, or new vision issues. The etiology of the stroke may be ischemic and I note the history of hypertension and elevated blood pressure in the emergency room. He also has extensive small vessel ischemic disease by MRI as well as atherosclerotic disease diffusely on CT angiography of the head and neck. However, the patient has a diagnosis of atrial fibrillation which has not been known in this patient. An embolic stroke, given his time course is quite likely. 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 These fusiform aneurysms have atherosclerotic plaque within them. Patient has a polyneuropathy , of an idiopathic nature, involving predominantly sensory fibers which is stable. Recommendations: 1. we are going to be needing the opinion of a vascular surgeon (or vascular neurosurgeon ) regarding the fusiform aneurysms. Certainly, they are at a size (Greater than 7 millimeters) that is worrisome for leak or rupture particularly since they are associated with atherosclerotic disease. 2. Typically, because of the atrial fibrillation and the likelihood that this was an embolic stroke, we would initiate anticoagulation. I am hesitant to do this with the fusiform aneurysms. 3. Given his extensive small vessel ischemic disease I would be inclined to sw itch his aspirin to 75 milligrams clopidogrel. This in theory should not have any higher bleeding risk for the aneurysm than aspirin alone. I would discontinue the aspirin. 4. physical, occupational, and speech therapy consult. This patient may benefit from an inpatient rehabilitation stay. 5. Control blood pressure as you are doing, aiming for a mean arterial pressure of 95-100. 6. this patient would not be a high dose statin candidate, in lieu of his advanced age and risk of hemorrhage. His lipid parameters are quite good And does not need to have his simvastatin dose changed 7. Awaiting echocardiogram and consider ROCIO. Overall, I spent a total of 110 minutes with this case including review of records, review of MRI and CT films with Radiology, direct evaluation the patient at bedside, and discussing the case with the patient and nurse at bedside as well as Dr. Millan and Dr. Sanches, including differential diagnosis and treatment options. History of Present Illness Reason for Consultation: 85-year-old, who I was asked to see at the request of Dr. Michaels, for neurologic consultation regarding stroke. Requesting Physician: Dr. Michaels Attending Physician: Avery Sanches, DO History of Present Illness this patient has a longstanding history of hypertension and he has been on 81 milligram aspirin tablet for quite some time. He does not have any history of heart disease or cardiac dysrhythmia, diabetes, or known dyslipidemia. patient has a history of macular degeneration and is "legally" blind Patient was in his usual state of health on the morning of April 23 and awoke around 0600. He felt well. He got out of bed around 0800 and was still doing well. He got cleaned up and went downstairs to eat breakfast. Around 0930 he was drinking coffee and eating a piece of pie. he had the sudden onset of noticing that his right hand was weak and he could not last picker his cup of coffee. There was no pain or numbness. around 1130, He tried to get up but realized he could not and he ended up falling hitting his right knee on the ground and his head on the chair. he laid on the floor for approximately 1 hour. There was no loss of consciousness and he has had no headache. He has had no new vision issues or speech problems that he is aware. His aide found him early afternoon and encouraged him to go to the emergency room. He arrived to the emergency room April 23 1540, with a blood pressure of 158/79, temperature 36.9, pulse 71 regular, respiratory rate 18 comfortable, and O2 saturation 96 percent. He was known to have 3/5 strength in the right arm and leg. There were no other neurologic deficits perceived. CBC and Chem profile were unremarkable. Chest x-ray was unremarkable. CT scan of the head was unremarkable for acute changes. A CT scan of the cervical spine showed no fractures but some degenerative changes. CT angiography of the head and neck revealed extensive, diffuse atherosclerotic change in intracranial vessels. There was an 11 millimeter fusiform aneurysm in the distal cervical portion of the right internal carotid artery and a 7 millimeter fusiform aneurysm in the distal cervical portion of the left internal carotid artery. There was diffuse plaque noted in the internal carotid arteries as well as in the fusiform aneurysms. MRI of the brain revealed a small left parietal acute -subacute stroke. There was extensive old small vessel ischemic disease and mild generalized atrophy. I have reviewed the CT angiography and MRI films with the radiologist, Dr. Millan. Patient himself has right-sided weakness but no pain or headache. He is not dizzy but does have his visual changes as before. He does not believe he has any new vision changes and he has no new numbness or pain in his limbs or spine , except he has right knee pain.. The patient has been noted to be in atrial fibrillation on overnight monitoring. This has been continuous and a rate between the 60s in the 90s. Blood pressure this morning is 133/71 with a pulse of 59 and he was afebrile. Today, CBC was unremarkable, Chem profile was unremarkable and triglycerides 80. Total cholesterol was 100. TSH was 1.99. Allergies Allergy/AdvReac Type Severity Reaction Status Date / Time No Known Allergies Allergy Verified 04/23/20 19:07 Home Medications Home Medications Medication Instructions Recorded Confirmed Type aspirin [Aspirin Low Dose] 81 mg PO DAILY 04/23/20 04/23/20 History cholecalciferol (vitamin D3) 10 mcg PO DAILY 04/23/20 04/23/20 History food supplemt, lactose-reduced 1 ea PO BID 04/23/20 04/23/20 History [Ensure] hydrophilic cream 1 applic TOPICAL DAILY 04/23/20 04/23/20 History latanoprost 1 drp OPB HS 04/23/20 04/23/20 History levothyroxine 50 mcg PO DAILY 04/23/20 04/23/20 History lidocaine HCl [Aspercreme 1 applic TOPICAL DIRECTED PRN 04/23/20 04/23/20 History (lidocaine HCl)] lisinopril-hydrochlorothiazide 1 tab PO DAILY 04/23/20 04/23/20 History meclizine 25 mg PO TID PRN 04/23/20 04/23/20 History naproxen sodium 220 mg PO BID PRN 04/23/20 04/23/20 History omega-3 fatty acids-vitamin E 1 cap PO DAILY 04/23/20 04/23/20 History [Fish Oil] simvastatin 10 mg PO HS 04/23/20 04/23/20 History tamsulosin 0.4 mg PO DAILY 04/23/20 04/23/20 History vit C,Y-Ej-dhfgx-lutein-zeaxan 1 tab PO BID 04/23/20 04/23/20 History [PreserVision AREDS-2] Patient History Medical History (Updated 04/24/20 @ 09:11 by Edmund Bailey MD) Age-related macular degeneration Benign prostatic hyperplasia Hypertension Hypothyroidism Surgical History S/P hemorrhoidectomy Family History Mother , age 82 of an [place] Myocardial infarction Father , age 86 of an [place] Myocardial infarction Social History Smoking Status: Never smoker Tobacco Type: Smokeless Tobacco (Dip or Chew) Second Hand Exposure: No; Do You Dip or Chew Tobacco: Yes; Tobacco Cessation Education Requested by Patient: No Hx Alcohol Use: No Hx Substance Use: No Preferred Language: Thai Communication Ability: Effective Visual Impairment: Partially Limited Beliefs That Will Affect Care: None Current Living Situation: Alone Current Living Situation Comment: Home health aid comes into patients home twice/week; [facility] comes [facility] current occupational status: retired 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 [employer] Other Information That Helps Us Care for You: No Feels Safe at Home: Yes Safety Concerns: Feels Safe At This Time Assistive Devices: Cane, CPAP, Denture - Upper, Denture - Lower and Glasses Review of Systems Constitutional: + fatigue and + weakness; no fever Eyes: + worsening vision; no diplopia and no eye pain Ear, Nose, Mouth, Throat: + hearing loss; no ear pain, no tinnitus, no dizziness, no hoarseness and no dysphagia Respiratory: no cough and no dyspnea Cardiovascular: no chest pain, no palpitations and no lightheadedness Gastrointestinal: no abdominal pain, no nausea and no vomiting Genitourinary: + urinary frequency; no dysuria and no urinary incontinence Musculoskeletal: + joint pain; no back pain, no neck pain, no radicular pain and no myalgia Integumentary: no rash and no lesions Neurologic: + localized weakness; no gait abnormality, no generalized weakness, no tingling, no numbness, no tremor(s), no abnormal movements, no headache(s), no abnormal speech, no confusion and no memory loss Psychiatric: no depression, no irritability, no anxiety, no difficulty concentrating, no confusion and no hallucinations Endocrine: no fatigue and no flushing Hematologic / Lymphatic: no easy bleeding and no easy bruising Allergy / Immunological: no urticaria and no problem reported Exam (Neuro) Physical Exam: The patient is left-handed. The patient is awake, alert, and attentive. Speech is mildly dysarthric but there is no obvious aphasia. he can name objects, repeat phrases, and has normal spontaneous speech. Mentation and thought processes are intact, with orientation to person, place and time, and normal fund of knowledge. Attention and concentration are normal. Mood and affect are normal and appropriate. General appearance and grooming are normal. Short and long-term memory are intact for conversation. The discs are sharp with positive venous pulsations bilaterally. There are no exudates, hemorrhages, or blood vessel changes seen. Pupils are 3 mm bilaterally and reactive to light. Extraocular eye muscles are intact without nystagmus. Visual acuity and visual morin seem normal grossly to confrontation. There are no deficits to sensation in the face in all 3 distributions of the fifth cranial nerve bilaterally. Corneal reflexes are positive bilaterally. Facial strength and symmetry was normal bilaterally. Hearing seems mildly decreased to conversation. Palate moves well without asymmetry. There is normal sternocleidomastoid and trapezius (shoulder shrug) strength bilaterally. Tongue is midline with good strength bilaterally. Neck has a full range of motion without discomfort. There are no cervical bruits bilaterally. There are no cranial or ocular bruits. Heart is without murmur. There is a regular rhythm and rate. Cervical, thoracic, and lumbar spine are nontender to palpation. Gait was not tested. Stance was poor sitting up in bed on his own and needed the assistance to maintain a sitting position. With outstretched arms there is drift on the right.There are no resting, postural, or action tremors. There is no ataxia with finger to nose testing. There is Decreased facility in the right hand. No other abnormal involuntary movements are noted. Motor strength is 5/5 diffusely in the left upper extremity including biceps, triceps, brachioradialis, wrist flexors and extensors, label fuser tender, and intrinsic hand muscles. however, he is very weak at the shoulder girdle including deltoid muscle on the left due to a rotator cuff problem. Motor strength is 4/5 diffusely in the Right upper extremity proximally and distally. In the left lower extremity, strength was 5/5, including hip flexors, quadriceps, hamstrings, gastrocnemius, tibialis anterior, tibialis posterior, and Peroneii muscles. in the right lower extremity strength was 3/5 diffusely both proximally and distally. The limbs have good tone without rigidity or spasticity. There is no atrophy noted in the muscles. Muscle bulk is normal, there is no tenderness to palpation, no myotonia to percussion, and no fasciculations seen. Sensory examination Reveals some stocking decrease pinprick sense loss to the mid lower legs bilaterally. Hands are spared. Reflexes are 1/4 in the biceps, triceps, and brachioradialis tendons bilaterally. Quadriceps and Achilles tendon reflexes are absent bilaterally. There is no clonus bilaterally. Toes are downgoing with plantar stimulation bilaterally. Peripheral pulses are present and of normal quality distally in all 4 limbs. There is no peripheral edema noted in the limbs. Results & Data ([facility]) Vital Signs (Past 12 Hours) Vital Signs Temp Pulse Pulse Resp BP Pulse Ox 04/24/20 07:15 36.6 C 59 L 18 133/71 96 04/24/20 03:32 36.8 C 76 16 126/76 94 04/24/20 00:00 70 04/23/20 23:45 36.7 C 62 16 127/74 96 Diagnostic Findings MRI OF THE BRAIN WITHOUT IV CONTRAST CLINICAL HISTORY: Right-sided weakness. COMPARISON STUDY: CT of the brain dated 04/23/2020. TECHNIQUE: MRI of the brain was performed utilizing various T1 and T2-weighted sequences in the axial, sagittal, and coronal planes. IV contrast was not administered for this examination. FINDINGS: Brain parenchyma: There is a small focus of restricted diffusion identified in the left parietal lobe consistent with acute to subacute ischemia. No additional foci of restricted diffusion are identified. There is no hemorrhage or mass effect. There is age-related involutional change noting advanced confluent subcortical and periventricular microangiopathic disease. A chronic lacunar infarct is noted in the right mitchell radiata. No extra-axial fluid collection is seen. The cerebellar tonsils are normal in configuration. Ventricles, sulci, and cisterns: Prominent secondary to involutional change. Pituitary and sella: Partially empty sella is incidentally noted. Intracranial vasculature: Normal flow voids are maintained at the skull base. Orbits: The bony orbits are grossly intact. Orbital contents are normal in appearance noting bilateral ocular lens implants. Sinuses and mastoids: Clear. Calvarium: Unremarkable. Cervical cord: Partially visualized cervical spinal cord is normal in morphology and signal intensity. IMPRESSION: 1. There is a small focus of restricted diffusion identified in the left parietal lobe consistent with acute to subacute ischemia. 2. No additional foci of acute ischemia are identified. 3. There is no hemorrhage or mass effect. ACT 112: Negative or not required by law. Electronically signed by: Rylan Avila M.D. 04/24/2020 7:11 AM [facility] HISTORY: Right-sided weakness. Stroke evaluation. TECHNIQUE: Multiaxial CT images of the neck were performed following the intravenous administration of contrast to evaluate the major cervical vessels. Maximum intensity projection images were also obtained. All measurements were calculated based on NASCET criteria. A dose lowering technique was utilized adhering to the principles of ALARA. COMPARISON STUDY: None. FINDINGS: The aortic arch and proximal great vessels are widely patent. Moderat e calcified plaque within the bilateral carotid bifurcations without significant stenosis. Tortuous proximal bilateral internal carotid arteries. Mild fusiform aneurysmal dilatation of the distal left internal carotid artery measuring 7 mm in diameter. There is a large fusiform aneurysm seen within the distal right internal carotid artery measuring 11 mm in diameter and 1.8 cm in length. Mild narrowing at the origin of the bilateral vertebral arteries due to the calcified plaque. Remaining bilateral vertebral arteries are widely patent. IMPRESSION: 1. No significant stenosis, occlusion, or dissection within the bilateral carotid arteries. 2. Mild focal narrowing at the origin of the bilateral vertebral arteries. 3. 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 as described above with the largest on the right measuring 11 mm in diameter and 1.8 cm in length. ACT 112: Negative or not required by law. Electronically signed by: Jason Schultz M.D. 04/23/2020 4:59 PM PG Care Time/CCT Total # of Minutes Spent Total Time Spent with Patient: Total time spent is greater than 50% in coordination of care (as documented) at patient's floor/unit and/or counseling patient: Coding Level of Care Code 16657 Initial Inpt Care Lvl 3 Diagnoses Acute CVA (cerebrovascular accident) I63.9 Right sided weakness R53.1 Aneurysm of carotid artery I72.0 Atrial fibrillation I48.91 Chronic cerebral ischemia I67.82 Idiopathic polyneuropathy G60.9 Hypertension I10 Time Spent (min) 110 Comment Add [id number] to the [id number]
[2020-04-24 08:54] LABS: Thyroid Stimulating Hormone 1.99 uIu/ml (0.300-4.500)
[2020-04-24] MEDS ORDERED: ASPIRIN 81 MG ECTAB PO SCH (09:00)
[2020-04-24] MEDS ORDERED: HYDROPHILIC TOP SCH (09:00)
--- NOTE | 2020-04-24 09:00 | XRay Report ---
RIGHT KNEE 2 VIEWS CLINICAL HISTORY: Fall with right knee pain and swelling. FINDINGS: AP and crosstable lateral views of the right knee are obtained. No prior studies are availa ble for comparison at the time of dictation. The skeletal structures are osteopenic. No fracture is c learly identified. There is a joint effusion with questionable lipohemarthrosis. Advanced degenerativ e narrowing is seen at the patellofemoral articulation. Moderate degenerative narrowing is seen in th e medial and lateral compartments. There are large marginal osteophytes and patellar enthesophytes. P repatellar soft tissue swelling is noted. There is atherosclerotic calcification of the popliteal art theresa. IMPRESSION: 1. Soft tissue swelling with no fracture clearly identified. 2. Joint effusion with possible lipohemarthrosis. Occult occult fracture is not excluded. Consider CT scan of the knee for further assessment. 3. Osteopenia and degenerative change as above. Electronically signed by: Rylan Avila M.D. 04/24/2020 8:58 AM
[2020-04-24 09:26] LABS: Estimated Average Glucose 105 mg/dl; Hemoglobin A1C 5.3 % (4.5-5.6)
[2020-04-24] MEDS: ENOXAPARIN INJ 40 MG/0.4 ML SYR SQ SCH (14:47)
--- NOTE | 2020-04-24 15:48 | Hospitalist Progress Note ---
Date of Service April 24, 2020 Assessment & Plan (1) Acute CVA (cerebrovascular accident): MRI with small acute ischemic stroke left parietal lobe explains right sided weakness which is improving neurology favors small vessel ischemia as etiology he does have atrial fibrillation but given one small area of stroke, embolic seems less likely will continue on Plavix, stop aspirin continue simvastatin, lipid levels acceptable and not a candidate for high intensity statin for now, hold on full anticoagulation, will call [facility] to speak with neurovascular surgery for recommendations PT/OT consulted, plan for rehab on discharge, CM following (2) Aneurysm of carotid artery: quite large, 11mm on right and 7mm on left caution in starting full anticoagulation until I speak with [facility] (3) Atrial fibrillation: incidental finding on tele it appears to be paroxysmal he is rate controlled without medications as above, hold for now on full anticoagulation (4) Chronic cerebral ischemia: evidence on MRI brain continue Plavix (5) Idiopathic polyneuropathy: chronic issue (6) Right sided weakness: due to acute ischemic stroke PT/OT consulted plan for rehab strength is improving (7) Hypothyroidism: TSH with AM labs Continue levothyroxine 50 mcg PO daily (8) Hypertension: Hold lisinopril/HCTZ to allow permissive hypertension as above. BP is low normal today (9) Abnormal EKG: Bifascicular block. No history of syncope. Irregular rhythm - ?wandering pacemaker, heart block, presence of p waves therefore not a. fib. Monitor on telemetry repeat EKG today shows afib (10) Benign prostatic hyperplasia: Presumed diagnosis from medication list. Continue tamsulosin 0.4mg PO daily (11) Age-related macular degeneration: Continue Preservision 1 tab BID (12) DVT prophylaxis: Lovenox 40mg SQ daily Admission and Anticipated Discharge Date Admission Date: April 23, 2020 Subjective patient resting in bed, no distress he says that his right upper extremity strength is much better, still weak in right lower extremity no difficulty swallowing or speaking, no changes in vision no chest pain, no dyspnea, no vomiting, no fever/chills discussed case with Dr. Bailey, he recommends Plavix alone, Zocor, blood pressure control discussed that he has atrial fibrillation that is new hesitant to start anticoagulation with evidence of large carotid artery aneurysms will attempt to speak with neurovascular surgery at [facility] to get their input reviewed chart reviewed labs and imaging, MRI brain with small ischemic stroke left parietal lobe when I discussed findings with patient and treatment and rehab he said that he would not want any major interventions he says that over the past three years his quality of life has deteriorated a lot so much that he voluntarily said that he would not care if he would at this point he said the lives in apartment in [place], his still lives at their home, he lives in apartment because he cannot walk up steps in light of what he said, he confirmed that he would want to be DNR if his heart would stop or he would stop breathing Review of Systems Review of Systems: All systems reviewed & are unremarkable except as noted in Subjective Respiratory: no cough and no dyspnea Cardiovascular: no chest pain and no edema Neurologic: + localized weakness (right leg); no paralysis, no numbness, no dizziness, no syncope, no headache(s), no abnormal speech, no confusion and no memory loss Physical Exam Constitutional: WD/WN, vitals as above Eyes: PERRL, conjunctivae normal, anicteric sclerae ENMT: external ear and nose normal, oropharynx normal Neck: trachea midline, no thyromegaly Respiratory: normal respiratory effort, lungs clear to auscultation Cardiovascular: RRR, no murmur, no edema Gastrointestinal (Abdomen): normal bowel sounds, soft, nontender, no hepatosplenomegaly Musculoskeletal: Head/Neck/Chest: normocephalic, head atraumatic and neck supp le Extremities: extremities normal to inspection and + abnormal strength (right lower extremity 4 out of 5, otherwise 5/5 strength); no cyanosis, no clubbing and no petechiae Skin: no rashes, warm and dry Neurologic: patellar DTR's 2+ bilat, sensation intact and PERRL, EOMI, accommodation nl, no face palsy, no dysarthria Psychiatric: A+Ox3, euthymic affect Lymphatic: no cervical or axillary lymphadenopathy Results & Data Results & Data ([facility]) Vital Signs (Past 12 Hours) Vital Signs Temp Pulse Resp BP Pulse Ox 04/24/20 15:22 36.9 C 56 L 20 126/80 97 04/24/20 12:31 36.6 C 73 18 110/65 97 04/24/20 07:15 36.6 C 59 L 18 133/71 96 Laboratory Results Laboratory Results - last 24 hr 04/23/20 04/23/20 04/23/20 15:30 15:30 15:30 WBC 7.03 RBC 4.74 Hgb 14.8 Hct 43.6 MCV 92.0 MCH 31.2 MCHC 33.9 RDW Std Deviation 49.1 H RDW Coeff of Chon 14.5 Plt Count 211 MPV 11.1 H Immature Gran % (Auto) 0.1 Neut % (Auto) 70.1 Lymph % (Auto) 17.9 Kimball % (Auto) 11.2 Eos % (Auto) 0.7 Baso % (Auto) 0.0 Neut # (Auto) 4.92 Lymph # (Auto) 1.26 Kimball # (Auto) 0.79 H Eos # (Auto) 0.05 Baso # (Auto) 0.00 Immature Gran # (Auto) 0.01 PT 11.4 INR 1.1 APTT 30.5 PTT Ratio 1.1 Sodium 139 Potassium 3.8 Chloride 106 Carbon Dioxide 27 Anion Gap 6.0 BUN 19 H Creatinine 1.18 Est Cr Clr Drug Dosing 53.3 Est GFR ( Amer) 64.4 Est GFR (Non-Af Amer) 55.5 BUN/Creatinine Ratio 16.2 Glucose 85 Estimat Average Glucose Hemoglobin A1c Calcium 9.1 Magnesium 2.1 Total Bilirubin 0.5 AST 27 ALT 27 Alkaline Phosphatase 93 Troponin I < 0.015 Total Protein 8.4 H Albumin 3.1 L Globulin 5.3 H Albumin/Globulin Ratio 0.6 L Triglycerides Cholesterol LDL Cholesterol, Calc VLDL Cholesterol, Calc HDL Cholesterol Cholesterol/HDL Ratio TSH 04/24/20 04/24/20 04/24/20 07:48 07:48 07:48 WBC 6.23 RBC 4.67 L Hgb 14.4 Hct 42.8 MCV 91.6 MCH 30.8 MCHC 33.6 RDW Std Deviation 48.8 H RDW Coeff of Chon 14.6 H Plt Count 202 MPV 11.4 H Immature Gran % (Auto) 0.2 Neut % (Auto) 54.1 Lymph % (Auto) 27.3 Kimball % (Auto) 16.4 Eos % (Auto) 1.8 Baso % (Auto) 0.2 Neut # (Auto) 3.38 Lymph # (Auto) 1.70 Kimball # (Auto) 1.02 H Eos # (Auto) 0.11 Baso # (Auto) 0.01 Immature Gran # (Auto) 0.01 PT INR APTT PTT Ratio Sodium 139 Potassium 3.5 Chloride 107 Carbon Dioxide 24 Anion Gap 8.0 BUN 19 H Creatinine 1.22 Est Cr Clr Drug Dosing 48.1 Est GFR ( Amer) 61.8 Est GFR (Non-Af Amer) 53.4 BUN/Creatinine Ratio 15.2 Glucose 85 Estimat Average Glucose 105 Hemoglobin A1c 5.3 Calcium 9.3 Magnesium Total Bilirubin AST ALT Alkaline Phosphatase Troponin I Total Protein Albumin Globulin Albumin/Globulin Ratio Triglycerides 80 Cholesterol 100 LDL Cholesterol, Calc 45 VLDL Cholesterol, Calc 16 HDL Cholesterol 39 Cholesterol/HDL Ratio 3 TSH 1.990 Diagnostic Findings MRI brain IMPRESSION: 1. There is a small focus of restricted diffusion identified in the left parietal lobe consistent with acute to subacute ischemia. 2. No additional foci of acute ischemia are identified. 3. There is no hemorrhage or mass effect. CT angiogram neck IMPRESSION: 1. No significant stenosis, occlusion, or dissection within the bilateral carotid arteries. 2. Mild focal narrowing at the origin of the bilateral vertebral arteries. 3. 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 as described above with the largest on the right measuring 11 mm in diameter and 1.8 cm in length Medications Administered Current Inpatient Medications Clopidogrel Bisulfate (Clopidogrel Bisulfate 75 Mg Tab) 75 mg PO QAM [facility] Stop: 05/24/20 08:59 Last Admin: 04/24/20 08:29 Dose: 75 mg Documented by: Enoxaparin Sodium (Enoxaparin Inj 40 Mg/0.4 Ml Syr) 40 mg SQ QAM [facility] Stop: 05/24/20 08:59 Last Admin: 04/24/20 14:47 Dose: 40 mg Documented by: Fish Oil ([place]-3 (Purified Fish Oil) 1 Gm Cap) 1 gm PO DAILY [facility] Stop: 05/24/20 08:59 Last Admin: 04/24/20 08:28 Dose: 1 gm Documented by: Latanoprost (Latanoprost 0.005% Op Soln 2.5 Ml Btl) 1 drops OPB HS [facility] Stop: 05/23/20 20:59 Last Admin: 04/23/20 22:33 Dose: 1 drops Documented by: Levothyroxine Sodium (Levothyroxine Sodium 50 Mcg Tablet) 50 mcg PO DAILYBB [facility] Stop: 05/24/20 06:29 Last Admin: 04/24/20 08:28 Dose: 50 mcg Documented by: Miscellaneous Information (Pharmacist Discharge Med Rec Consult) 1 ea N/A UD PRN; Protocol PRN Reason: Consult Stop: 05/23/20 20:31 Multivitamins/Minerals (Cerovite Adv Formula Tab) 1 tab PO DAILY [facility] Stop: 05/24/20 08:59 Last Admin: 04/24/20 08:28 Dose: 1 tab Documented by: Simvastatin (Simvastatin 10 Mg Tab) 10 mg PO HS [facility] Stop: 05/23/20 20:59 Last Admin: 04/23/20 22:33 Dose: 10 mg Documented by: Tamsulosin HCl (Tamsulosin Hcl 0.4 Mg Cap) 0.4 mg PO DAILY [facility] Stop: 05/24/20 08:59 Last Admin: 04/24/20 08:28 Dose: 0.4 mg Documented by: Trolamine Salicylate (Trolamine Salicylate 10% Crm 255 Appln/85 Gm Tube) 1 appln EXT UD PRN PRN Reason: Pain Stop: 05/23/20 20:31 Vitamin D (Cholecalciferol (Vitamin D) 400 Units Tablet) 400 units PO DAILY [facility] Stop: 05/24/20 08:59 Last Admin: 04/24/20 08:28 Dose: 400 units Documented by: PG Care Time/CCT Total # of Minutes Spent Total Time Spent with Patient: Total time spent is greater than 50% in coordination of care (as documented) at patient's floor/unit and/or counseling patient: Coding Level of Care Code 21930 Subseq Hosp Care Lvl 3 Diagnoses Acute CVA (cerebrovascular accident) I63.9 Aneurysm of carotid artery I72.0 Atrial fibrillation I48.91 Chronic cerebral ischemia I67.82 Idiopathic polyneuropathy G60.9 Right sided weakness R53.1 Hypothyroidism E03.9 Hypertension I10 Abnormal EKG R94.31 Benign prostatic hyperplasia N40.0 Age-related macular degeneration H35.30 DVT prophylaxis Z29.9
--- NOTE | 2020-04-24 19:04 | XCELERA ---
[id number]
[2020-04-24] MEDS: SIMVASTATIN 10 MG TAB PO SCH (19:50)
[2020-04-24] MEDS: LATANOPROST 0.005% OP SOLN 2.5 ML BTL OPB SCH (19:50)
--- NOTE | 2020-04-24 22:06 | Electrocardiogram Report ---
Test Reason : Blood Pressure : / mmHG Vent. Rate : 085 BPM Atrial Rate : 087 BPM P-R Int : 384 ms QRS Dur : 132 ms QT Int : 436 ms P-R-T Axes : 028 -62 050 degrees QTc Int : 518 ms Possible Atrial fibrillation Right bundle branch block Left anterior fascicular block Bifascicular block Abnormal ECG No previous ECGs available Confirmed by Monty Conti ([id number]) on 04/24/2020 10:05:29 PM Referred By: REFERRED SELF Confirmed By:Monty Conti
--- NOTE | 2020-04-24 22:41 | Electrocardiogram Report ---
Test Reason : Blood Pressure : / mmHG Vent. Rate : 074 BPM Atrial Rate : 000 BPM P-R Int : 000 ms QRS Dur : 128 ms QT Int : 414 ms P-R-T Axes : 000 -65 032 degrees QTc Int : 459 ms Atrial fibrillation Right bundle branch block Left anterior fascicular block Bifascicular block Abnormal ECG When compared with ECG of 23-APR-2020 15:44, No significant change Confirmed by Monty Conti ([id number]) on 04/24/2020 10:41:36 PM Referred By: REFERRED SELF Confirmed By:Monty Conti
[2020-04-25 07:23] LABS: Eosinophils # (auto) 0.08 K/uL (0-0.5); Eosinophils % (auto) 1.1 %; Hematocrit (blood only) 40.4 % (42-52); Hemoglobin 13.7 g/dL (14.0-18.0); Lymphocytes % (auto) 22.2 %; Mean Corpuscular Hemoglobin 30.9 pg (25-34); Mean Corpuscular Hgb Conc 33.9 g/dL (32-36); Mean Platelet Volume 11.4 fL (7.4-10.4); Monocytes # (auto) 0.97 K/uL (0.11-0.59); Monocytes % (auto) 13.5 %; Neutrophils # (auto) 4.55 K/uL (1.4-6.5); Neutrophils % (auto) 63.2 %; Platelet Count 189 K/uL (130-400); RDW Coefficient of Variation 14.5 % (11.5-14.5); Red Blood Count 4.44 M/uL (4.7-6.1)
[2020-04-25] MEDS: LEVOTHYROXINE SODIUM 50 MCG TABLET PO SCH (07:47)
[2020-04-25 07:51] LABS: BUN Creatinine Ratio 16.7 (10-20); Calcium 9.4 mg/dl (8.5-10.1); Creatinine Clr Calc Pharmacy 46.4 ml/min; Est GFR (African American) 59.5; Est GFR (Non-African American) 51.3; Potassium 3.1 mmol/L (3.5-5.1)
[2020-04-25] MEDS: CLOPIDOGREL BISULFATE 75 MG TAB PO SCH (08:13)
[2020-04-25] MEDS: CHOLECALCIFEROL (VITAMIN D) 400 UNITS TABLET PO SCH (08:13)
[2020-04-25] MEDS: OMEGA-3 (PURIFIED FISH OIL) 1 GM CAP PO SCH (08:13)
[2020-04-25] MEDS: CEROVITE ADV FORMULA TAB PO SCH (08:13)
[2020-04-25] MEDS: ENOXAPARIN INJ 40 MG/0.4 ML SYR SQ SCH (08:14)
[2020-04-25] MEDS: TAMSULOSIN HCL 0.4 MG CAP PO SCH (08:14)
[2020-04-25] MEDS: APIXABAN 2.5 MG TAB PO SCH ×2 (13:10→20:29)
--- NOTE | 2020-04-25 14:20 | Hospitalist Progress Note ---
Date of Service April 25, 2020 Assessment & Plan (1) Acute CVA (cerebrovascular accident): MRI with small acute ischemic stroke left parietal lobe explains right sided weakness which is improving neurology favors small vessel ischemia as etiology he does have atrial fibrillation but given one small area of stroke, embolic seems less likely will continue on Plavix, stop aspirin continue simvastatin, lipid levels acceptable and not a candidate for high intensity statin will initiate Eliquis 5mg BID for stroke prevention with the afib after discussing with neurovascular surgery at [facility] PT/OT consulted, plan for rehab on discharge, CM following (2) Aneurysm of carotid artery: quite large, 11mm on right and 7mm on left caution in starting full anticoagulation until I speak with [facility] spoke with specialist on 04/25, fusiform aneurysms are less likely for rupture compared to saccular aneurysms the bleeding risk would be very low, likely lower than stroke risk will start on Eliquis (3) Atrial fibrillation: incidental finding on tele it appears to be paroxysmal he is rate controlled without medications as above, start Eliquis (4) Chronic cerebral ischemia: evidence on MRI brain continue Plavix (5) Idiopathic polyneuropathy: chronic issue (6) Right sided weakness: due to acute ischemic stroke PT/OT consulted plan for rehab strength is improving (7) Hypothyroidism: TSH with AM labs Continue levothyroxine 50 mcg PO daily (8) Hypertension: resume Lisinopril today hold on HCTZ (9) Abnormal EKG: Bifascicular block. No history of syncope. Irregular rhythm - ?wandering pacemaker, heart block, presence of p waves therefore not a. fib. Monitor on telemetry repeat EKG 04/24 shows afib (10) Benign prostatic hyperplasia: Presumed diagnosis from medication list. Continue tamsulosin 0.4mg PO daily (11) Age-related macular degeneration: Continue Preservision 1 tab BID (12) DVT prophylaxis: now on Eliquis (13) Hypokalemia: low at 3.1 add BID replacement and repeat tomorrow Admission and Anticipated Discharge Date Admission Date: April 23, 2020 Subjective patient doing well, had a large BM today that made him feel better, he is eating still weak in right leg but right arm and hand are stronger speaking clearly, no visual changes I called neurovascular surgery at [facility], they felt that bleeding risk of fusiform aneurysms lower than stroke risk, would recommend anticoagulation spoke with Dr. Bailey to update him on plan, he agreed with anticoagulation working on getting patient to rehab, will be here over the weekend labs reviewed, CBC stable, BMP with Cr of 1.2 and K is 3.1 Review of Systems Review of Systems: All systems reviewed & are unremarkable except as noted in Subjective Neurologic: + localized weakness (right leg) Physical Exam Constitutional: WD/WN, vitals as above Eyes: PERRL, conjunctivae normal, anicteric sclerae ENMT: external ear and nose normal, oropharynx normal Neck: trachea midline, no thyromegaly Respiratory: normal respiratory effort, lungs clear to auscultation Cardiovascular: RRR, no murmur, no edema Gastrointestinal (Abdomen): normal bowel sounds, soft, nontender, no hepatosplenomegaly Musculoskeletal: Head/Neck/Chest: normocephalic, head atraumatic and neck supple Extremities: extremities normal to inspection and + abnormal strength (right lower extremity 4 out of 5, otherwise 5/5 strength); no cyanosis, no clubbing and no petechiae Skin: no rashes, warm and dry Neurologic: patellar DTR's 2+ bilat, sensation intact and PERRL, EOMI, accommodation nl, no face palsy, no dysarthria Psychiatric: A+Ox3, euthymic affect Lymphatic: no cervical or axillary lymphadenopathy Results & Data Results & Data ([facility]) Vital Signs (Past 12 Hours) Vital Signs Temp Pulse Resp BP Pulse Ox 04/25/20 11:47 37.1 C 75 17 145/84 H 95 04/25/20 07:42 36.7 C 83 20 154/95 H 95 04/25/20 04:40 36.7 C 86 18 123/75 94 Laboratory Results Laboratory Results - last 24 hr 04/25/20 04/25/20 07:09 07:09 WBC 7.20 RBC 4.44 L Hgb 13.7 L Hct 40.4 L MCV 91.0 MCH 30.9 MCHC 33.9 RDW Std Deviation 49.0 H RDW Coeff of Chon 14.5 Plt Count 189 MPV 11.4 H Immature Gran % (Auto) 0.0 Neut % (Auto) 63.2 Lymph % (Auto) 22.2 Green % (Auto) 13.5 Eos % (Auto) 1.1 Baso % (Auto) 0.0 Neut # (Auto) 4.55 Lymph # (Auto) 1.60 Green # (Auto) 0.97 H Eos # (Auto) 0.08 Baso # (Auto) 0.00 Immature Gran # (Auto) 0.00 Sodium 141 Potassium 3.1 L Chloride 110 H Carbon Dioxide 21 Anion Gap 10.0 BUN 21 H Creatinine 1.26 Est Cr Clr Drug Dosing 46.4 Est GFR ( Amer) 59.5 Est GFR (Non-Af Amer) 51.3 BUN/Creatinine Ratio 16.7 Glucose 87 Calcium 9.4 Medications Administered Current Inpatient Medications Apixaban (Apixaban 2.5 Mg Tab) 5 mg PO BID [facility] Stop: 05/25/20 12:14 Last Admin: 04/25/20 13:10 Dose: 5 mg Documented by: Clopidogrel Bisulfate (Clopidogrel Bisulfate 75 Mg Tab) 75 mg PO QAM [facility] Stop: 05/24/20 08:59 Last Admin: 04/25/20 08:13 Dose: 75 mg Documented by: Fish Oil ([place]-3 (Purified Fish Oil) 1 Gm Cap) 1 gm PO DAILY [facility] Stop: 05/24/20 08:59 Last Admin: 04/25/20 08:13 Dose: 1 gm Documented by: Latanoprost (Latanoprost 0.005% Op Soln 2.5 Ml Btl) 1 drops OPB HS [facility] Stop: 05/23/20 20:59 Last Admin: 04/24/20 19:50 Dose: 1 drops Documented by: Levothyroxine Sodium (Levothyroxine Sodium 50 Mcg Tablet) 50 mcg PO DAILYBB [facility] Stop: 05/24/20 06:29 Last Admin: 04/25/20 07:47 Dose: 50 mcg Documented by: Miscellaneous Information (Pharmacist Discharge Med Rec Consult) 1 ea N/A UD PRN; Protocol PRN Reason: Consult Stop: 05/23/20 20:31 Multivitamins/Minerals (Cerovite Adv Formula Tab) 1 tab PO DAILY [facility] Stop: 05/24/20 08:59 Last Admin: 04/25/20 08:13 Dose: 1 tab Documented by: Potassium Chloride (Potassium Chloride 20 Meq Tabcr) 20 meq PO BID [facility] Stop: 05/25/20 12:29 Simvastatin (Simvastatin 10 Mg Tab) 10 mg PO HS [facility] Stop: 05/23/20 20:59 Last Admin: 04/24/20 19:50 Dose: 10 mg Documented by: Tamsulosin HCl (Tamsulosin Hcl 0.4 Mg Cap) 0.4 mg PO DAILY [facility] Stop: 05/24/20 08:59 Last Admin: 04/25/20 08:14 Dose: 0.4 mg Documented by: Trolamine Salicylate (Trolamine Salicylate 10% Crm 255 Appln/85 Gm Tube) 1 appln EXT UD PRN PRN Reason: Pain Stop: 05/23/20 20:31 Vitamin D (Cholecalciferol (Vitamin D) 400 Units Tablet) 400 units PO DAILY [facility] Stop: 05/24/20 08:59 Last Admin: 04/25/20 08:13 Dose: 400 units Documented by: PG Care Time/CCT Total # of Minutes Spent Total Time Spent with Patient: Total time spent is greater than 50% in coordination of care (as documented) at patient's floor/unit and/or counseling patient: Coding Level of Care Code 44556 Subseq Hosp Care Lvl 3 Diagnoses Acute CVA (cerebrovascular accident) I63.9 Aneurysm of carotid artery I72.0 Atrial fibrillation I48.91 Chronic cerebral ischemia I67.82 Idiopathic polyneuropathy G60.9 Right sided weakness R53.1 Hypothyroidism E03.9 Hypertension I10 Abnormal EKG R94.31 Benign prostatic hyperplasia N40.0 Age-related macular degeneration H35.30 DVT prophylaxis Z29.9 Hypokalemia E87.6
[2020-04-25] MEDS ORDERED: KETOROLAC TROMETHAMINE 15 MG/ML VIAL IV PRN (14:28)
[2020-04-25] MEDS: POTASSIUM CHLORIDE 20 MEQ TABCR PO SCH ×2 (15:09→20:29)
[2020-04-25] MEDS: lisinopriL 20 MG TAB PO SCH (16:55)
[2020-04-25] MEDS: LATANOPROST 0.005% OP SOLN 2.5 ML BTL OPB SCH (20:28)
[2020-04-25] MEDS: SIMVASTATIN 10 MG TAB PO SCH (20:29)
[2020-04-25] MEDS: DICLOFENAC SOD 1% GEL 100 GM TUBE EXT SCH (20:29)
[2020-04-26] MEDS: LEVOTHYROXINE SODIUM 50 MCG TABLET PO SCH (06:22)
[2020-04-26 06:42] LABS: Basophils # (auto) 0.01 K/uL (0-0.2); Basophils % (auto) 0.1 %; Eosinophils # (auto) 0.03 K/uL (0-0.5); Eosinophils % (auto) 0.3 %; Hematocrit (blood only) 40.8 % (42-52); Hemoglobin 13.7 g/dL (14.0-18.0); Immature Granulocytes # (auto) 0.01 K/uL (0.00-0.02); Immature Granulocytes % (auto) 0.1 %; Lymphocytes # (auto) 1.65 K/uL (1.2-3.4); Lymphocytes % (auto) 18.5 %; Mean Corpuscular Hemoglobin 30.4 pg (25-34); Mean Corpuscular Hgb Conc 33.6 g/dL (32-36); Mean Corpuscular Volume 90.7 fL (80-100); Mean Platelet Volume 11.3 fL (7.4-10.4); Monocytes % (auto) 13.5 %; Neutrophils # (auto) 6.01 K/uL (1.4-6.5); Neutrophils % (auto) 67.5 %; Platelet Count 199 K/uL (130-400); RDW Coefficient of Variation 14.5 % (11.5-14.5); RDW Standard Deviation 48.5 fL (36.4-46.3); White Blood Count 8.91 K/uL (4.8-10.8)
[2020-04-26 07:11] LABS: Calcium 8.6 mg/dl (8.5-10.1); Est GFR (Non-African American) 51.8; Potassium 2.7 mmol/L (3.5-5.1)
[2020-04-26] MEDS: DICLOFENAC SOD 1% GEL 100 GM TUBE EXT SCH ×3 (08:28→22:05)
[2020-04-26] MEDS: CHOLECALCIFEROL (VITAMIN D) 400 UNITS TABLET PO SCH (08:29)
[2020-04-26] MEDS: APIXABAN 2.5 MG TAB PO SCH ×2 (08:29→21:29)
[2020-04-26] MEDS: TAMSULOSIN HCL 0.4 MG CAP PO SCH (08:29)
[2020-04-26] MEDS: CLOPIDOGREL BISULFATE 75 MG TAB PO SCH (08:29)
[2020-04-26] MEDS: CEROVITE ADV FORMULA TAB PO SCH (08:29)
[2020-04-26] MEDS: OMEGA-3 (PURIFIED FISH OIL) 1 GM CAP PO SCH (08:30)
[2020-04-26] MEDS: POTASSIUM CHLORIDE 20 MEQ TABCR PO SCH ×3 (08:30→21:29)
[2020-04-26] MEDS: lisinopriL 20 MG TAB PO SCH (09:16)
[2020-04-26] MEDS: POTASSIUM CHLORIDE / WTR 10 MEQ/100 ML PLCT IV SCH ×2 (10:15→11:05)
--- NOTE | 2020-04-26 15:49 | Hospitalist Progress Note ---
Date of Service April 26, 2020 Assessment & Plan (1) Acute CVA (cerebrovascular accident): MRI with small acute ischemic stroke left parietal lobe explains right sided weakness which is improving neurology favors small vessel ischemia as etiology he does have atrial fibrillation but given one small area of stroke, embolic seems less likely will continue on Plavix, stop aspirin continue simvastatin, lipid levels acceptable and not a candidate for high intensity statin will initiate Eliquis 5mg BID for stroke prevention with the afib after discussing with neurovascular surgery at [place] PT/OT consulted, plan for rehab on discharge, CM following likely for SNF rehab tomorrow or Monday, just waiting for bed availability and insurance should order a COVID test in the morning (2) Aneurysm of carotid artery: quite large, 11mm on right and 7mm on left caution in starting full anticoagulation spoke with neuro vascular specialist on 04/25, fusiform aneurysms are less likely for rupture compared to saccular aneurysms the bleeding risk would be very low, likely lower than stroke risk will start on Eliquis, continue this on discharge (3) Atrial fibrillation: incidental finding on tele it appears to be paroxysmal he is rate controlled without medications as above, start Eliquis (4) Chronic cerebral ischemia: evidence on MRI brain continue Plavix (5) Idiopathic polyneuropathy: chronic issue (6) Right sided weakness: due to acute ischemic stroke PT/OT consulted plan for rehab strength is improving (7) Hypothyroidism: TSH with AM labs Continue levothyroxine 50 mcg PO daily (8) Hypertension: resume Lisinopril, BP low normal hold on HCTZ, could probably hold the HCTZ on discharge (9) Benign prostatic hyperplasia: Presumed diagnosis from medication list. Continue tamsulosin 0.4mg PO daily (10) Age-related macular degeneration: Continue Preservision 1 tab BID (11) DVT prophylaxis: now on Eliquis (12) Hypokalemia: lower at 2.7 increase to TID replacement and repeat tomorrow Admission and Anticipated Discharge Date Admission Date: April 26, 2020 Subjective patient doing well, no acute issues eating well, no chest pain, no dyspnea, no fever/chills, no cough he is making urine, moving bowels still waiting on SNF rehab, he is medically stable will downgrade to medical floor Review of Systems Review of Systems: All systems reviewed & are unremarkable except as noted in Subjective Neurologic: + localized weakness (right lower extremity) Physical Exam Constitutional: WD/WN, vitals as above Eyes: PERRL, conjunctivae normal, anicteric sclerae ENMT: external ear and nose normal, oropharynx normal Neck: trachea midline, no thyromegaly Respiratory: normal respiratory effort, lungs clear to auscultation Cardiovascular: RRR, no murmur, no edema Gastrointestinal (Abdomen): normal bowel sounds, soft, nontender, no hepatosplenomegaly Musculoskeletal: Head/Neck/Chest: normocephalic, head atraumatic and neck supple Extremities: extremities normal to inspection and + abnormal strength (right lower extremity 4 out of 5, otherwise 5/5 strength); no cyanosis, no clubbing and no petechiae Skin: no rashes, warm and dry Neurologic: patellar DTR's 2+ bilat, sensation intact and PERRL, EOMI, accommodation nl, no face palsy, no dysarthria Psychiatric: A+Ox3, euthymic affect Lymphatic: no cervical or axillary lymphadenopathy Results & Data Results & Data ([facility]) Vital Signs (Past 12 Hours) Vital Signs Temp Pulse Resp BP BP Pulse Ox 04/26/20 15:05 36.5 C 79 18 122/81 95 04/26/20 11:01 37.6 C H 79 20 127/79 95 04/26/20 07:07 36.9 C 77 19 117/75 95 Laboratory Results Laboratory Results - last 24 hr 04/26/20 04/26/20 06:08 06:08 WBC 8.91 RBC 4.50 L Hgb 13.7 L Hct 40.8 L MCV 90.7 MCH 30.4 MCHC 33.6 RDW Std Deviation 48.5 H RDW Coeff of Chon 14.5 Plt Count 199 MPV 11.3 H Immature Gran % (Auto) 0.1 Neut % (Auto) 67.5 Lymph % (Auto) 18.5 [place] % (Auto) 13.5 Eos % (Auto) 0.3 Baso % (Auto) 0.1 Neut # (Auto) 6.01 Lymph # (Auto) 1.65 [place] # (Auto) 1.20 H Eos # (Auto) 0.03 Baso # (Auto) 0.01 Immature Gran # (Auto) 0.01 Sodium 140 Potassium 2.7 L Chloride 111 H Carbon Dioxide 23 Anion Gap 6.0 BUN 23 H Creatinine 1.25 Est Cr Clr Drug Dosing 47.0 Est GFR ( Amer) 60.0 Est GFR (Non-Af Amer) 51.8 BUN/Creatinine Ratio 18.0 Glucose 105 H Calcium 8.6 Medications Administered Current Inpatient Medications Apixaban (Apixaban 2.5 Mg Tab) 5 mg PO BID [facility] Stop: 05/25/20 12:14 Last Admin: 04/26/20 08:29 Dose: 5 mg Documented by: Clopidogrel Bisulfate (Clopidogrel Bisulfate 75 Mg Tab) 75 mg PO QAM PRITI Stop: 05/24/20 08:59 Last Admin: 04/26/20 08:29 Dose: 75 mg Documented by: Diclofenac Sodium (Diclofenac Sod 1% Gel 100 Gm Tube) 2 gm EXT Q8 PRITI Stop: 05/25/20 20:14 Last Admin: 04/26/20 14:10 Dose: 2 gm Documented by: Fish Oil ([place]-3 (Purified Fish Oil) 1 Gm Cap) 1 gm PO DAILY PRITI Stop: 05/24/20 08:59 Last Admin: 04/26/20 08:30 Dose: 1 gm Documented by: Ketorolac Tromethamine (Ketorolac Tromethamine 15 Mg/Ml Vial) 15 mg IV Q6H PRN PRN Reason: Pain Stop: 04/30/20 14:27 Latanoprost (Latanoprost 0.005% Op Soln 2.5 Ml Btl) 1 drops OPB HS [facility] Stop: 05/23/20 20:59 Last Admin: 04/25/20 20:28 Dose: 1 drops Documented by: Levothyroxine Sodium (Levothyroxine Sodium 50 Mcg Tablet) 50 mcg PO DAILYBB [facility] Stop: 05/24/20 06:29 Last Admin: 04/26/20 06:22 Dose: 50 mcg Documented by: Lisinopril (Lisinopril 20 Mg Tab) 20 mg PO QAM [facility] Stop: 05/25/20 14:59 Last Admin: 04/26/20 09:16 Dose: 20 mg Documented by: Miscellaneous Information (Pharmacist Discharge Med Rec Consult) 1 ea N/A UD PRN; Protocol PRN Reason: Consult Stop: 05/23/20 20:31 Multivitamins/Minerals (Cerovite Adv Formula Tab) 1 tab PO DAILY [facility] Stop: 05/24/20 08:59 Last Admin: 04/26/20 08:29 Dose: 1 tab Documented by: Potassium Chloride (Potassium Chloride 20 Meq Tabcr) 20 meq PO TID PRITI Stop: 05/26/20 13:59 Last Admin: 04/26/20 14:10 Dose: 20 meq Documented by: Simvastatin (Simvastatin 10 Mg Tab) 10 mg PO HS PRITI Stop: 05/23/20 20:59 Last Admin: 04/25/20 20:29 Dose: 10 mg Documented by: Tamsulosin HCl (Tamsulosin Hcl 0.4 Mg Cap) 0.4 mg PO DAILY PRITI Stop: 05/24/20 08:59 Last Admin: 04/26/20 08:29 Dose: 0.4 mg Documented by: Trolamine Salicylate (Trolamine Salicylate 10% Crm 255 Appln/85 Gm Tube) 1 appln EXT UD PRN PRN Reason: Pain Stop: 05/23/20 20:31 Vitamin D (Cholecalciferol (Vitamin D) 400 Units Tablet) 400 units PO DAILY PRITI Stop: 05/24/20 08:59 Last Admin: 04/26/20 08:29 Dose: 400 units Documented by: PG Care Time/CCT Total # of Minutes Spent Total Time Spent with Patient: Total time spent is greater than 50% in coordination of care (as documented) at patient's floor/unit and/or counseling patient: Coding Level of Care Code 81456 Subseq Hosp Care Lvl 3 Diagnoses Acute CVA (cerebrovascular accident) I63.9 Aneurysm of carotid artery I72.0 Atrial fibrillation I48.91 Chronic cerebral ischemia I67.82 Idiopathic polyneuropathy G60.9 Right sided weakness R53.1 Hypothyroidism E03.9 Hypertension I10 Benign prostatic hyperplasia N40.0 Age-related macular degeneration H35.30 DVT prophylaxis Z29.9 Hypokalemia E87.6
[2020-04-26] MEDS: SIMVASTATIN 10 MG TAB PO SCH (21:28)
[2020-04-26] MEDS: LATANOPROST 0.005% OP SOLN 2.5 ML BTL OPB SCH (21:29)
[2020-04-27] MEDS: LEVOTHYROXINE SODIUM 50 MCG TABLET PO SCH (05:21)
[2020-04-27] MEDS: DICLOFENAC SOD 1% GEL 100 GM TUBE EXT SCH ×3 (05:24→20:27)
[2020-04-27 07:27] LABS: BUN Creatinine Ratio 22.1 (10-20); Creatinine Clr Calc Pharmacy 40.7 ml/min; Est GFR (African American) 50.6; Est GFR (Non-African American) 43.7; Potassium 2.8 mmol/L (3.5-5.1)
[2020-04-27] MEDS: OMEGA-3 (PURIFIED FISH OIL) 1 GM CAP PO SCH (08:20)
[2020-04-27] MEDS: TAMSULOSIN HCL 0.4 MG CAP PO SCH (08:20)
[2020-04-27] MEDS: POTASSIUM CHLORIDE 20 MEQ TABCR PO SCH ×3 (08:20→20:27)
[2020-04-27] MEDS: APIXABAN 2.5 MG TAB PO SCH ×2 (08:20→20:26)
[2020-04-27] MEDS: CEROVITE ADV FORMULA TAB PO SCH (08:21)
[2020-04-27] MEDS: CHOLECALCIFEROL (VITAMIN D) 400 UNITS TABLET PO SCH (08:21)
[2020-04-27] MEDS: CLOPIDOGREL BISULFATE 75 MG TAB PO SCH (08:22)
[2020-04-27] MEDS: LATANOPROST 0.005% OP SOLN 2.5 ML BTL OPB SCH (08:22)
[2020-04-27] MEDS ORDERED: POTASSIUM CHLORIDE 20 MEQ TABCR PO STA (09:11)
[2020-04-27] MEDS: lisinopriL 20 MG TAB PO SCH (09:44)
[2020-04-27] MEDS ORDERED: MICONAZOLE NITRATE POWDER 43 GM EXT PRN (13:02)
--- NOTE | 2020-04-27 13:55 | Neurology Progress Note ---
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 # Left frontoparietal infarct: Symptom localization: left frontoparietal lobe Stroke mechanism: cardioembolic less likely lacunar/lipohyalinosis Stroke Management: - Will adoption counselor concerning stroke education, smoking cessation, healthy diet, physical activity, weight loss - Follow up with PCP for assistance with outpatient goals (BP <135/85, LDL <70, A1c <7) - Follow up in neurology clinic in 6-8 weeks (with SANJAY Mccarthy) Secondary Stroke Prevention: - Antiplatelet: currently on plavix 75mg daily; would not continue once he is started on apixaban given increased risk of hemorrhage without clear benefit on protecting against intracranial atherosclerosis related strokes (https://www.ncbi.nlm.nih.gov/pmc/articles/MSX5597555/) - Anticoagulation: apixaban 5mg bid - Statin: continue home simvastatin Thank you for this interesting consult. Plan of care was discussed with primary team. Please call with any questions. (2) Right sided weakness: (3) Aneurysm of carotid artery: (4) Atrial fibrillation: (5) Idiopathic polyneuropathy: Admission and Anticipated Discharge Date Admission Date: April 26, 2020 Subjective NAEs overnight. Review of Systems Review of Systems: 14 point review of systems completed and negative except as in HPI. Results & Data ([facility]) Vital Signs (Past 12 Hours) Vital Signs Temp Pulse Resp BP Pulse Ox 04/27/20 07:14 36.3 C L 58 L 18 98/63 L 97 04/27/20 03:53 36.4 C L 61 18 111/70 96 Exam (Neuro) Physical Exam: General Exam: GEN: NAD, lying down in examination bed. HEENT: No conjunctival injection, no rhinorrhea CV: RRR on monitor, no significant edema. PULM: Nonlabored respirations on room air. Neuro Exam: MS: Awake and Alert. Oriented to person, being in a hospital, and month/year. Speech fluent and appropriate with mild dysarthria, no paraphasic errors. Language intact including naming, comprehension, repetition. Cognition and memory grossly intact. Attention intact. No neglect. CN: Visual black full, + blink to threat bilaterally. PERRLA OU. EOMI without nystagmus. Facial sensation intact to LT. Facial muscles full and symmetric. Hearing intact to finger rub bilaterally. Uvula midline with symmetric palatal elevation. Shoulder shrug normal. Tongue midline. MOTOR: Normal bulk and tone. No pronator drift. LUE strength 5/5 at deltoids, biceps, triceps, and finger flexors. RUE strength 4/5 at deltoids, biceps, triceps, and finger flexors. BLE strength 5-/5 at iliopsoas, hamstrings, quadriceps, tibialis anterior, and gastrocnemius bilaterally. REFLEXES: 1+ at biceps, triceps, brachioradialis, absent patella, and absent Achilles bilaterally. Flexor plantar responses bilaterally. SENSORY: Intact to LT/temperature throughout, no extinction to double simultaneous stimuli. Diminished to vibration in BLEs up to the knees. COORDINATION: No dysmetria or ataxia on [id number] bilaterally. Normal [place]uria bilaterally. GAIT: Deferred due to physical status. NIH STROKE SCALE 1A. Level of Consciousness (0-3) = 0 1B. LOC Questions (0-2) = 0 1C. LOC Commands (0-2) = 0 2. Best Horizontal Gaze (0-2) = 0 3. Visual Black (0-3) = 0 4. Facial Palsy (0-3) = 0 5. Motor Arm Right (0-4) = 1 Left (0-4) = 0 6. Motor Leg Right (0-4) = 0 Left (0-4) = 0 7. Limb Ataxia (0-2) = 0 8. Sensory (0-2) = 0 9. Best Language (0-3) = 0 10. Dysarthria (0-2) = 1 11. Extinction and Inattention (0-2) = 0 NIHSS TOTAL = 2 PG Care Time/CCT Total # of Minutes Spent Total Time Spent with Patient: Total time spent is greater than 50% in coordination of care (as documented) at patient's floor/unit and/or counseling patient: Coding Level of Care Code 21172 Subseq Hosp Care Lvl 2 Diagnoses Acute CVA (cerebrovascular accident) I63.9 Right sided weakness R53.1 Aneurysm of carotid artery I72.0 Atrial fibrillation I48.91 Idiopathic polyneuropathy G60.9
--- NOTE | 2020-04-27 16:41 | Hospitalist Progress Note ---
Date of Service April 27, 2020 Assessment & Plan (1) Acute CVA (cerebrovascular accident): MRI with small acute ischemic stroke left parietal lobe explains right sided weakness which is improving neurology favors cardioembolic CVA over small vessel dz With atrial fibrillation here--> started on Eliquis and Neuro now recommends stopping antiplatelet dc Plavix continue simvastatin, lipid levels acceptable and not a candidate for high intensity statin initiated Eliquis 5mg BID for stroke prevention with the afib after discussing with neurovascular surgery at [facility] with carotid aneurysms -continue BP control PT/OT consulted, plan for rehab on discharge, CM following (2) Aneurysm of carotid artery: quite large, 11mm on right and 7mm on left spoke with neuro vascular specialist on 04/25, fusiform aneurysms are less likely for rupture compared to saccular aneurysms the bleeding risk would be very low, likely lower than stroke risk will start on Eliquis, continue this on discharge (3) Atrial fibrillation: incidental finding on tele it appears to be paroxysmal he is rate controlled without medications as above, started Eliquis (4) Chronic cerebral ischemia: evidence on MRI brain (5) Idiopathic polyneuropathy: chronic issue (6) Right sided weakness: due to acute ischemic stroke PT/OT consulted plan for rehab strength is improving (7) Hypothyroidism: TSH here is normal Continue levothyroxine 50 mcg PO daily (8) Hypertension: hold Lisinopril for permissive HTN today and mild rise in tenter frame back tender dc HCTZ for now for hypokalemia (9) Benign prostatic hyperplasia: Presumed diagnosis from medication list. Continue tamsulosin 0.4mg PO daily (10) Age-related macular degeneration: Continue Preservision 1 tab BID (11) Hypokalemia: significantly low persistently gave 60meq this AM and continue 20 tid follow BMP in AM (12) Shoulder pain: rt shoulder pain from fall FROM passively, some pain with active motion and on palpation -continue PT, toradol for pain (13) DVT prophylaxis: now on Eliquis Dispo-awaiting discharge at [facility] tomrorow to [facility] COVID-19 negative Admission and Anticipated Discharge Date Admission Date: April 26, 2020 Subjective Doing well, has some right shoulder pain from previous fall. Has some residual RUE weakness. Denies CP or SOB. Not on tele Review of Systems Review of Systems: All systems reviewed & are unremarkable except as noted in HPI & below Physical Exam Constitutional: WD/WN, vitals as above Eyes: + anicteric sclerae ENMT: external ear and nose normal, oropharynx normal Neck: trachea midline, no thyromegaly Respiratory: normal respiratory effort, lungs clear to auscultation Cardiovascular: RRR, no murmur, no edema Chest (Breasts): Chest: normal inspection of chest Gastrointestinal (Abdomen): normal bowel sounds, soft, nontender, no hepatosplenomegaly Musculoskeletal: Extremities: extremities normal to inspection; no cyanosis and no clubbing Shoulder: + joint line tenderness (Right anterior shoulder, FROM passively,cannot lift arm due to pain), + Neer's test positive and + Hawkin's test positive; shoulder normal to inspection, no deformity, no effusion, no skin erythema and no ecchymosis Skin: no rashes, warm and dry Neurologic: moves all extremities, + focal motor deficit (4/5 weakness in RUE and RLE) and awake Psychiatric: A+Ox3, euthymic affect Lymphatic: no lymphedema Results & Data Results & Data ([facility]) Vital Signs (Past 12 Hours) Vital Signs Temp Pulse Resp BP Pulse Ox 04/27/20 15:30 36.4 C L 68 18 116/71 95 04/27/20 07:14 36.3 C L 58 L 18 98/63 L 97 Laboratory Results 04/27/20 04/27/20 04/27/20 Range/Units 12:06 12:06 06:40 Sodium 138 (136-145) mmol/L Potassium 2.8 L (3.5-5.1) mmol/L Chloride 110 H (98-107) mmol/L Carbon Dioxide 21 (21-32) mmol/L Anion Gap 7.0 (3-11) BUN 32 H (7-18) mg/dl Creatinine 1.44 H (0.6-1.4) mg/dl Est Cr Clr Drug Dosing 40.7 ml/min Est GFR ( Amer) 50.6 Est GFR (Non-Af Amer) 43.7 BUN/Creatinine Ratio 22.1 H (10-20) Glucose 85 (70-99) mg/dl Calcium 9.0 (8.5-10.1) mg/dl COVID-19 Eval Order Covid19 IDNow atMVAC SARS-CoV-2, RNA, NAAT NEGATIVE (NEGATIVE) PG Care Time/CCT Total # of Minutes Spent Total Time Spent with Patient: Total time spent is greater than 50% in coordination of care (as documented) at patient's floor/unit and/or counseling patient: Coding Level of Care Code 50292 Subseq Hosp Care Lvl 2 Diagnoses Acute CVA (cerebrovascular accident) I63.9 Aneurysm of carotid artery I72.0 Atrial fibrillation I48.91 Chronic cerebral ischemia I67.82 Idiopathic polyneuropathy G60.9 Right sided weakness R53.1 Hypothyroidism E03.9 Hypertension I10 Benign prostatic hyperplasia N40.0 Age-related macular degeneration H35.30 Hypokalemia E87.6 Shoulder pain M25.519 DVT prophylaxis Z29.9
[2020-04-27] MEDS: SIMVASTATIN 10 MG TAB PO SCH (20:26)
[2020-04-28] MEDS: DICLOFENAC SOD 1% GEL 100 GM TUBE EXT SCH ×2 (05:00→13:53)
[2020-04-28] MEDS: LEVOTHYROXINE SODIUM 50 MCG TABLET PO SCH (05:01)
[2020-04-28 07:40] LABS: BUN Creatinine Ratio 24.5 (10-20); Calcium 8.4 mg/dl (8.5-10.1); Creatinine Clr Calc Pharmacy 42.8 ml/min; Est GFR (African American) 53.7; Est GFR (Non-African American) 46.4; Magnesium 2.2 mg/dl (1.8-2.4); Potassium 3.5 mmol/L (3.5-5.1)
[2020-04-28] MEDS: POTASSIUM CHLORIDE 20 MEQ TABCR PO SCH (08:08)
[2020-04-28] MEDS: TAMSULOSIN HCL 0.4 MG CAP PO SCH (08:08)
[2020-04-28] MEDS: OMEGA-3 (PURIFIED FISH OIL) 1 GM CAP PO SCH (08:08)
[2020-04-28] MEDS: CEROVITE ADV FORMULA TAB PO SCH (08:08)
[2020-04-28] MEDS: APIXABAN 2.5 MG TAB PO SCH (08:09)
[2020-04-28] MEDS: CHOLECALCIFEROL (VITAMIN D) 400 UNITS TABLET PO SCH (08:09)
[2020-04-28] MEDS ORDERED: POTASSIUM CHLORIDE 20 MEQ TABCR PO SCH (09:00)
--- NOTE | 2020-04-28 15:12 | Discharge Summary ---
Date of Service April 28, 2020 Admission HPI Per Admitting Provider Mohan Salvador is an 85 year old male who presents to the ER with an episode of right sided weakness. No symptoms on waking up this morning. Around 9:30-10am while having a cup of coffee he suddenly couldn't lift his cup of coffee. He continued to have right arm weakness throughout the day. This afternoon he was unable to get himself up from his chair and fell to the ground due to a right sided weakness. He managed to crawl across the floor to call for an ambulance. He notes no history of stroke. He is unable to tell me any of his medications and just points me towards his medication list. [facility] and patient unable to tell me his past medical history other than to confirm known diagnoses of hypertension and hypothyroidism. He reports he is legally blind which when prompted thinks this is from age related macular degeneration. He denies any prior heart attack or stroke. He has no noticed any significant improvement in his symptoms in the ER. He is right handed. No change in speech, swallow, extremity change in sensation, vision, hearing, smell, taste. Principal Diagnosis Acute ischemic CVA, Atrial fibrillation Discharge Exam Constitutional WD/WN, vitals as above Eyes + anicteric sclerae Neck trachea midline, no thyromegaly Respiratory normal respiratory effort, lungs clear to auscultation Cardiovascular Rate/Rhythm: regular rate and + irregularly irregular Heart Sounds: no murmur Extremities: no edema Chest (Breasts) Chest: normal inspection of chest Gastrointestinal (Abdomen) normal bowel sounds, soft, nontender, no hepatosplenomegaly Musculoskeletal Extremities: extremities normal to inspection; no cyanosis and no clubbing Shoulder: + joint line tenderness (Right anterior shoulder, FROM passively,cannot lift arm due to pain), + Neer's test positive and + Hawkin's test positive; shoulder normal to inspection, no deformity, no effusion, no skin erythema and no ecchymosis Skin no rashes, warm and dry Neurologic moves all extremities, + focal motor deficit (4/5 weakness in RUE and RLE) and awake Psychiatric A+Ox3, euthymic affect Lymphatic no lymphedema Discharge Data Allergies Allergy/AdvReac Type Severity Reaction Status Date / Time No Known Allergies Allergy Verified 04/23/20 19:07 Consultations 04/23/20 17:28 ED Decision to Admit Stat 04/23/20 20:32 Consult Case Management - Discharge Planning Routine Consult Neurology Routine 04/24/20 01:09 Consult Health Information Management Routine Ordered Studies 04/23/20 15:45 CT angio head w con Stat CT angio neck with con Stat CT head/brain wo con Stat 04/23/20 15:50 CT cervical spine wo con Stat 04/23/20 20:32 MR brain wo con Urgent Right knee xray CXR Hospital Course (1) Acute CVA (cerebrovascular accident): MRI with small acute ischemic stroke left parietal lobe explains right sided weakness which is improving neurology favors cardioembolic CVA over small vessel dz With atrial fibrillation here--> started on Eliquis and Neuro recommends stopping antiplatelet continue simvastatin, lipid levels acceptable and not a candidate for high intensity statin initiated Eliquis 5mg BID for stroke prevention with the afib after discussing with neurovascular surgery at [facility] with carotid aneurysms -continue BP control PT/OT consulted, plan for rehab on discharge, CM following (2) Aneurysm of carotid artery: quite large, 11mm on right and 7mm on left spoke with neuro vascular specialist on 04/25, fusiform aneurysms are less likely for rupture compared to saccular aneurysms the bleeding risk would be very low, likely lower than stroke risk will start on Eliquis, continue this on discharge (3) Atrial fibrillation: incidental finding on tele it appears to be paroxysmal he is rate controlled without medications as above, started Eliquis (4) Chronic cerebral ischemia: evidence on MRI brain (5) Idiopathic polyneuropathy: chronic issue (6) Right sided weakness: due to acute ischemic stroke PT/OT consulted plan for rehab strength is improving (7) Hypothyroidism: TSH here is normal Continue levothyroxine 50 mcg PO daily (8) Hypertension: held Lisinopril for permissive HTN and mild rise in signals intelligence analyst--> now ok to restart lisinopril on discharge 20mg daily dcd HCTZ for severe hypokalemia (9) Benign prostatic hyperplasia: Presumed diagnosis from medication list. Continue tamsulosin 0.4mg PO daily (10) Age-related macular degeneration: Continue Preservision 1 tab BID (11) Hypokalemia: significantly low persistently, finally improved on day of discharge after many days of replacement and holding HCTZ continue 20 bid an edi BMP in 1 week, could probably stop at that point as will be off HCTZ (12) Shoulder pain: rt shoulder pain from fall FROM passively, some pain with active motion and on palpation -continue PT, Voltaren gel for pain (13) Right knee pain: now resolved, secondary to fall xray with some effusion, cannot exclude fracture completely but is able to bear weight. If not improving, consider Ortho consult as outpt (14) DVT prophylaxis: Eliquis Dispo-dc to SNF today at [facility] COVID-19 negative Total Time Total Time Spent Total Time Spent (In Minutes): 35 min Total Time Includes: Examination of the Patient, Discharge Planning and Medication Reconciliation Discharge Plan Discharge Items Patient Disposition: Transfer [facility] Reason For Visit: RIGHT SIDED WEAKNESS SUSPECTED CVA Discharge Diagnosis: Acute ischemic CVA with right sided weakness, Atrial fibrillation Condition on Discharge: Good Activity: As commented below Lifting: Gradually increase as tolerated Bathing: No limitations Exercise/Sports: Gradually increase as tolerated Weightbearing: Full weightbearing Non-emergency contact: Primary Care Provider Call non-emergency contact if: you have any medication questions and your symptoms worsen Follow-up/Referrals: Cecilia Maria PA-C [Physician [facility]] - (Follow up for stroke in 6-8 weeks) Pedro Luis Solares [Primary Care Provider] - (Follow up within 1-2 weeks.) Diet: Heart Healthy Addtl Attending Provider Instructions: You were admitted and found to have a stroke. This was likely caused by your heart arrhythmia, atrial fibrillation. You were started on a blood thinner called Nelson to prevent future strokes. Please follow up with the Neurologist in 6-8 weeks. Your potassium level was quite low likely secondary to your HCTZ use. The HCTZ was discontinued and you will remain on potassium chloride tablets 20 meq twice daily x 1 week. Please have a BMP checked on lab work in 1 week to see if potassium level is ok. Risk Factors for Stroke: You can reduce your chances of stroke by working with your medical provider to adopt a healthy lifestyle. Some specific ways to lower your chance of stroke are: * If you are a smoker, now is the time to stop smoking cigarettes * If you are diabetic, improve the control of your blood sugars * Avoid excessive amounts of alcohol * Control high blood pressure * Lose weight if you are overweight * Be sure to lead an active lifestyle * Eat a healthy diet low in salt, cholesterol and fat You should know about other risk factors for stroke that you are unable to control. These include: * Age 55 years or older * Male gender * Certain racial groups: , or / * Family History of Stroke, Mini stroke or Heart Attack * Sickle Cell Disease Follow Up: It is important for you to keep your follow up appointments with your medical provider. Who to Call and When: Medical Emergencies: Call 911 immediately if you experience any of the following warning signs and symptoms of Stroke: * Sudden numbness or weakness of the face, arm or leg, especially on one side of the body * Sudden confusion, trouble speaking or understanding * Sudden trouble seeing in one or both eyes * Sudden trouble walking, dizziness, loss of balance or coordination * Sudden severe headache with no cause Do not delay calling 911 if you experience any warning signs or symptoms of a stroke. Delay in seeking medical attention may affect what treatments can be given to you. . Pending Studies at Discharge: No Stand-Alone Forms: My [facility] Skilled Items Patient informed of condition?: Yes DNR: Yes Discharge Level of Care: Skilled Communicable Disease: No Discharge Prognosis: Improving Lines: None Urinary Catheter: No Medications and DC Order Prescriptions: New apixaban 5 mg tablet 5 mg PO BID Qty: 60 RF: 0 lisinopril 20 mg Tablet 20 mg PO QAM Qty: 30 RF: 0 diclofenac sodium [Voltaren] 1 % Gel 2 g EXT Q8 Qty: 100 RF: 0 potassium chloride [Klor-Con M20] 20 mEq Tablet,Er Particles/Crystals 20 meq PO BID 7 Days Qty: 14 RF: 0 Continued latanoprost 0.005 % Drops 1 drp OPB HS RF: 0 tamsulosin 0.4 mg Capsule 0.4 mg PO DAILY RF: 0 levothyroxine 50 mcg Tablet 50 mcg PO DAILY RF: 0 simvastatin 20 mg Tablet 10 mg PO HS RF: 0 cholecalciferol (vitamin D3) 10 mcg (400 unit) Tablet 10 mcg PO DAILY RF: 0 meclizine 25 mg Tablet,Chewable 25 mg PO TID PRN (Reason: Dizziness) RF: 0 Ensure Liquid 1 ea PO BID RF: 0 Fish Oil 1,000 mg Capsule 1 cap PO DAILY RF: 0 hydrophilic cream Cream 1 applic TOPICAL DAILY RF: 0 PreserVision AREDS-2 [id number] Capsule 1 tab PO BID RF: 0 lidocaine HCl [Aspercreme (lidocaine HCl)] 4 % Cream 1 applic TOPICAL DIRECTED PRN (Reason: Pain) RF: 0 Discontinued aspirin [Aspirin Low Dose] 81 mg Tablet,Delayed Release (Dr/Ec) 81 mg PO DAILY RF: 0 naproxen sodium 220 mg Tablet 220 mg PO BID PRN (Reason: Pain) RF: 0 lisinopril-hydrochlorothiazide 20-25 mg Tablet 1 tab PO DAILY RF: 0 Discharge Orders: Discharge Order (Routine); Ordered 04/28/20 Ordered By: Nuzhat Tubbs Admission Data Admit Date/Time: 04/26/20 09:22 Attending Provider: Nuzhat Tubbs Admit Provider: Omer Michaels Primary Care Provider: Pedro Luis Solares Other Providers: Shanda Ferreira ; Omer Michaels ; Edmund Bailey Coding Level of Care Code D/C Day Management >30 mins Diagnoses Acute CVA (cerebrovascular accident) I63.9 Aneurysm of carotid artery I72.0 Atrial fibrillation I48.91 Chronic cerebral ischemia I67.82 Idiopathic polyneuropathy G60.9 Right sided weakness R53.1 Hypothyroidism E03.9 Hypertension I10 Benign prostatic hyperplasia N40.0 Age-related macular degeneration H35.30 Hypokalemia E87.6 Shoulder pain M25.519 Right knee pain M25.561 DVT prophylaxis Z29.9
== END 2020-04-28 18:36 | DRG 66 ==
LOC: 2S 15:36 → ED 15:36 → SUATTDRO 19:07 → 2S 19:37 → SUATTDRO 04-26 09:22 → 2N 04-26 18:15